=== PATIENT | male | born 1975 | race Caucasian/White ===

== ENCOUNTER 2025-02-09 16:13 | Inpatient (IN) ==
--- NOTE | 2025-02-09 16:22 | Emergency Department Note ---
Impression & Plan Cellulitis, Anemia, Hypokalemia ED Provider Note ED Provider Note NAME: KAMERON ZAPATA AGE:49 SEX: Male : 1975 ARRIVES VIA: POV INFORMANT: Patient ED PROVIDER(s): Elías Sung CHIEF COMPLAINT: cellulitis HPI: 49-year-old male presents emergency room with complaints of cellulitis. Patient's been on Keflex as outpatient. Patient States that he had fevers and chills, saw PCP who placed him on Keflex. She states been on it about a week and a half. States that he felt improved, in fact today he started having fevers and chills again, so he came in to be seen. He has had multiple bouts of cellulitis, he has significant lymphedema of the left lower extremity. PAST MEDICAL HISTORY:See Below PAST SURGICAL HISTORY:See Below FAMILY HISTORY:See Below SOCIAL HISTORY:See Below HOME MEDICATIONS:See Below ALLERGIES:See Below VITALS:See Below PHYSICAL EXAMINATION: GENERAL: alert, well appearing, well nourished, no distress, non-toxic NECK: supple, no nuchal rigidity, no adenopathy, non-tender LUNGS: Clear to auscultation. Normal chest wall mechanics, no w/r/r HEART: no murmurs, S1 normal and S2 normal ABDOMEN: abdomen soft, non-tender, normo-active bowel sounds, no masses, no rebound or guarding. BACK: Back is symmetrical on inspection and there is no deformity, no midline tenderness, no CVA tenderness. SKIN: no rashes, petechiae, orbruising UPPER EXTREMITIES: upper extremities are grossly normal. FROM, nml pulses b/l. LOWER EXTREMITIES: No pitting edema. FROM, nml pulses b/l. With exception of left lower extremity which has significant lymphedema. Redness from the knee below. Distal PMS appears intact. NEURO EXAM: Normal sensorium. Vital Signs: reviewed and remarkable Differential Diagnosis: Contact dermatitis, viral exanthem, urticaria, allergic reaction, Kowalski- Les syndrome, toxic epidermal necrolysis, erythema multiforme, cellulitis, scabies, HSV, varicella, zoster, eczema, staph scalded skin syndrome, fungal infection, as well as other pathologies. MEDICAL DECISION MAKIN-year-old male presents emergency room with complaints of left lower extremity cellulitis. Patient has failed outpatient treatment of cellulitis with Keflex. Patient states fever and chills, today so he came in to be seen. ER Treatment Provided: See below Diagnostics Interpreted By Me: -ECG: EKG shows sinus bradycardia at a rate of [address] changes, incomplete bundle branch block. -Cardiac Monitoring: An order was placed for continuous cardiac monitoring. The monitor shows a rate of 40 with sinus danny rhythm. -Laboratory studies: As stated above and show below. -Imaging studies: Venous study pending. Triage Nursing Note Reviewed Prior/Outside Records Reviewed Past Med/Surg History Problem List Hypokalemia (Acute) Anemia (Acute) Cellulitis (Acute) Social History Smoking Status: Never smoker Preferred Language: Kyrgyz Feels Safe at Home: Yes Allergies Allergies Allergy/AdvReac Type Severity Reaction Status Date / Time No Known Drug Allergies Allergy Unknown Verified 02/09/25 18:39 Results & Data (ED) Vital Signs Vital Signs - 24 hr 02/09/25 16:14 02/09/25 16:19 02/09/25 17:17 Temperature 36.7 C 36.5 C Temperature Source Oral Temporal Artery Scan Pulse Rate 44 L 41 L Pulse Rate [Apical] 43 L Pulse Rhythm [Apical] Regular Pulse Strength [Apical] Normal Respiratory Rate 16 19 Respiratory Effort / Characteristics Non-Labored Spontaneous Non-Labored Spontaneous Respiratory Depth Normal Normal Respiratory Pattern Regular Blood Pressure 146/81 H Blood Pressure [Right Arm] 132/68 Blood Pressure Mean 102 Blood Pressure Mean [Right Arm] 89 Blood Pressure Position [Right Arm] Lying Pulse Oximetry 100 100 Oxygen Delivery Method Room Air Room Air Sepsis Recent Fever Within 48 Hours No Sepsis New/Unexplained Change in Mental Status N/A Sepsis Action Taken by Nursing No Action Required 02/09/25 18:14 Temperature Temperature Source Pulse Rate Pulse Rate [Apical] 45 L Pulse Rhythm [Apical] Regular Pulse Strength [Apical] Normal Respiratory Rate 12 Respiratory Effort / Characteristics Non-Labored Spontaneous Respiratory Depth Normal Respiratory Pattern Regular Blood Pressure Blood Pressure [Right Arm] 124/76 Blood Pressure Mean Blood Pressure Mean [Right Arm] 92 Blood Pressure Position [Right Arm] Lying Pulse Oximetry 100 Oxygen Delivery Method Room Air Sepsis Recent Fever Within 48 Hours Sepsis New/Unexplained Change in Mental Status Sepsis Action Taken by Nursing Laboratory Data 10/18/25 16:43 02/09/25 16:43 Lab Results 02/09/25 Range/Units 16:43 WBC 5.97 (4.8-10.8) K/ul RBC 4.26 L (4.70-6.10) M/uL Hgb 10.4 L (14.0-18.0) g/dl Hct 32.8 L (42.0-52.0) % MCV 77.0 L (80.0-100.0) fL MCH 24.4 L (25.0-34.0) pg MCHC 31.7 L (32.0-36.0) g/dL RDW Std Deviation 44.4 (36.4-46.3) fL RDW Coeff of Rajiv 15.8 H (11.5-14.5) % Plt Count 185 (130-400) K/uL MPV 11.1 (9.4-12.4) fL Immature Gran % (Auto) 0.2 % Neut % (Auto) 49.6 % Lymph % (Auto) 38.9 % Andrews % (Auto) 7.7 % Eos % (Auto) 2.8 % Baso % (Auto) 0.8 % Neut # (Auto) 2.96 (1.40-6.50) K/uL Lymph # (Auto) 2.32 (1.20-3.40) K/uL Andrews # (Auto) 0.46 (0.11-0.59) K/uL Eos # (Auto) 0.17 (0.00-0.50) K/uL Baso # (Auto) 0.05 (0.00-0.20) K/uL Immature Gran # (Auto) 0.01 (0.01-0.20) K/uL ESR 33 H (0-15) mm/hr Sodium 139 (136-145) mmol/L Potassium 3.2 L (3.5-5.1) mmol/L Chloride 108 H (98-107) mmol/L Carbon Dioxide 25 (21-32) mmol/L Anion Gap 6 (3-11) BUN 9 (6-23) mg/dl Creatinine 0.89 (0.6-1.4) mg/dl Est Cr Clr Drug Dosing 134.6 ml/min eGFR 106.37 BUN/Creatinine Ratio 10.1 (10-20) Glucose 81 (70-99(Fasting)) mg/dl Lactate 0.8 (0.4-2.0) mmol/L Calcium 8.6 (8.6-10.3) mg/dl Iron 32 L (35-175) mcg/dl TIBC 413 (250-450) mcg/dl Transferrin 295 (200-360) mg/dl Transferrin % Sat 8 L (20-50) % Total Bilirubin 0.4 (0.2-1.0) mg/dl AST 16 (13-39) U/L ALT 10 (7-52) U/L Alkaline Phosphatase 136 H (34-104) U/L Troponin I High Sens 4.5 (0-20) pg/ml Total Protein 7.4 (6.0-8.3) gm/dl Albumin 3.4 (3.4-5.0) gm/dl Globulin 4.0 (2.5-4.0) gm/dl Albumin/Globulin Ratio 0.9 (0.9-2) Procalcitonin < 0.02 (0-0.5) ng/ml Administered Medications Vancomycin HCl 2,500 mg/ (Sodium Chloride) 550 mls @ 200 mls/hr IV NOW ONE Stop: 02/09/25 19:29 Last Admin: 02/09/25 18:15 Dose: 200 mls/hr Documented By: VIVIENNE Co-signed By: MARLON Discontinued Medications Hydromorphone HCl (Hydromorphone Inj 0.5 Mg/0.5 Ml Syr) 0.5 mg IV NOW STA Stop: 02/09/25 17:36 Last Admin: 02/09/25 18:09 Dose: 0.5 mg Documented By: VIVIENNE Co-signed By: MARLON Cefepime HCl (Maxipime 2000mg) 2,000 mg in 20 mls @ 5 mls/min IV NOW STA; Protocol Stop: 02/09/25 16:50 Last Admin: 02/09/25 17:26 Dose: 5 mls/min Documented By: BLAS Ketorolac Tromethamine (Ketorolac 30 Mg/Ml Vial) 30 mg IV NOW STA Stop: 02/09/25 16:48 Last Admin: 02/09/25 17:25 Dose: 30 mg Documented By: BLAS Potassium Chloride (Potassium Chloride Crtab 20 Meq Tabcr) 40 meq PO NOW STA Stop: 02/09/25 17:37 Last Admin: 02/09/25 18:08 Dose: 40 meq Documented By: VIVIENNE Co-signed By: MARLON Discharge Plan Visit Data Chief Complaint: Skin Problem Stated Complaint: CELLULITIS LEFT LEG, PAIN ED Provider: Thania Sung Discharge Problem: Cellulitis, Anemia, Hypokalemia Patient Disposition: Admitted As Inpatient Condition: Fair Forms Stand Alone Forms: [facility] Referrals Referrals: PCP,NO [Physician] - Discharge Problem: Cellulitis Qualifiers: Site of cellulitis: extremity Site of cellulitis of extremity: lower extremity Laterality: left Qualified Code(s): L03.116 - Cellulitis of left lower limb
[2025-02-09] MEDS ORDERED: VANCOMYCIN CONSULT ACTIVE PRN ×2 (16:45→18:10)
[2025-02-09 17:05] LABS: Hematocrit (blood only) 32.8 % (42.0-52.0); Hemoglobin 10.4 g/dl (14.0-18.0); Immature Granulocytes # (auto) 0.01 K/uL (0.01-0.20); Immature Granulocytes % (auto) 0.2 %; Mean Corpuscular Hemoglobin 24.4 pg (25.0-34.0); Mean Corpuscular Volume 77.0 fL (80.0-100.0); Platelet Count 185 K/uL (130-400); RDW Standard Deviation 44.4 fL (36.4-46.3); Red Blood Count 4.26 M/uL (4.70-6.10); White Blood Count 5.97 K/ul (4.8-10.8)
[2025-02-09] MEDS: KETOROLAC 30 MG/ML VIAL IV STA (17:25)
[2025-02-09 17:26] LABS: Alanine Aminotransferase 10 U/L (7-52); Albumin Globulin Ratio 0.9 (0.9-2); Albumin Level 3.4 gm/dl (3.4-5.0); Alkaline Phosphatase 136 U/L (34-104); Anion Gap 6 (3-11); Bilirubin,Total 0.4 mg/dl (0.2-1.0); Blood Urea Nitrogen 9 mg/dl (6-23); Calcium 8.6 mg/dl (8.6-10.3); Carbon Dioxide 25 mmol/L (21-32); Chloride 108 mmol/L (98-107); Creatinine Clr Calc Pharmacy 134.6 ml/min; Globulin 4.0 gm/dl (2.5-4.0); Glucose 81 mg/dl (70-99(Fasting)); Potassium 3.2 mmol/L (3.5-5.1); Sodium 139 mmol/L (136-145); Total Protein 7.4 gm/dl (6.0-8.3)
[2025-02-09] MEDS: CEFEPIME 2000MG 2,000 MG/20 ML SYR IV STA (17:26)
[2025-02-09] MEDS: POTASSIUM CHLORIDE CRTAB 20 MEQ TABCR PO STA (18:08)
[2025-02-09] MEDS: HYDROmorphone INJ 0.5 MG/0.5 ML SYR IV STA (18:09)
[2025-02-09] MEDS ORDERED: ACETAMINOPHEN 325 MG TAB PO PRN (18:10)
[2025-02-09] MEDS: VANCOMYCIN HCL 2,500 MG in SODIUM CHLORIDE 0.9% 500 ML IV ONE (18:15)
--- NOTE | 2025-02-09 18:19 | History & Physical Report ---
Date of Service February 09, 2025 Assessment & Plan (1) Cellulitis: Plan: As above in the History of Present Illness. (2) Hypokalemia: Plan: As above in the History of Present Illness. (3) Anemia: Plan: As above in the History of Present Illness. History of Present Illness Chief Complaint: "My left leg is infected; it started on the inside of my left upper thigh last Tuesday (01/30/2025), and I had fevers and chills on that same day Tuesday (01/30/2025), so I went to see my PCP Mr. Zaki Faria PA-C (JANNETTE Landers), and he prescribed keflex 500mg by mouth 4 times a day for 7 days. I told him before he prescribed it that I have taken keflex before to treat cellulitis of my left leg in the past and that it doesn't work, but he prescribed keflex 500mg by mouth 4 times a day for 7 days anyway, so I followed his advice, and I took all 28 tablets. I finished taking keflex on Tuesday (02/08/2025), and the keflex did not work. I didn't feel like calling my PCP CHOLO Payne (JANNETTE Landers), so I came to [facility] ER today (02/09/2025) to get it checked out. I haven't had any more fevers or chills since that last Tuesday (01/30/2025), but instead, I am not having serious pain in my left inside dunlap. The pain is sharp, stabbing, and constant, and doesn't go away at night, so I can't sleep for several nights now. The pain is an 8 (out of 10 point intensity scale) and I haven't taken medicine to take the pain away, as I'm worried that the infection is bad and may need to be drained again. There are no open wounds or ulcers on my left inside dunlap, and I don't see any pus or blood leaking out of my left inside dunlap, but still, it hurts so much, doc, I couldn't drive my car, so I had to get a friend drive me from my home to [facility] ER; we arrived this afternoon (02/09/2025, 4:00pm)." Primary Care Provider: Zaki Faria PA-C 49 years old male with PMH of FULL CODE @ home alone, obesity with BMI 38.7 (height 177.8 cm; weight 122.4 kg), s/p duodenal switch surgery (e.g., combination of gastric sleeve and bilio-pancreatic diversion (BPD))(2018, [facility], [place], [place]) with patient losing significant weight (e.g., pre-surgical weight 700 pounds in 2018; post-surgical weight now, 275 pounds on 02/09/2025), incipient lymphedema of right dynz-to-iniu over the past 1 year, chronic lymphedema of left jgbl-wn-okuy for the past 13 years, complicated by almost annual incidents of left mtkq-fv-zota cellulitis with abscess formation requiring surgical drainage x 1 (2008, [facility] [place], [place]), treated supportively thereafter with LLE compression bandage wraps, who reports: "My left leg is infected; it started on the inside of my left upper thigh last Tuesday (01/30/2025), and I had fevers and chills on that same day Tuesday (01/30/2025), so I went to see my PCP Mr. Zaki Faria PA-C (JANNETTE Landers), and he prescribed keflex 500mg by mouth 4 times a day for 7 days. I told him before he prescribed it that I have taken keflex before to treat cellulitis of my left leg in the past and that it doesn't work, but he prescribed keflex 500mg by mouth 4 times a day for 7 days anyway, so I followed his advice, and I took all 28 tablets. I finished taking keflex on Tuesday (02/08/2025), and the keflex did not work. I didn't feel like calling my PCP CHOLO Payne (JANNETTE Landers), so I came to [facility] ER today (02/09/2025) to get it checked out. I haven't had any more fevers or chills since that last Tuesday (01/30/2025), but instead, I am not having serious pain in my left inside dunlap. The pain is sharp, stabbing, and constant, and doesn't go away at night, so I can't sleep for several nights now. The pain is an 8 (out of 10 point intensity scale) and I haven't taken medicine to take the pain away, as I'm worried that the infection is bad and may need to be drained again. There are no open wounds or ulcers on my left inside dunlap, and I don't see any pus or blood leaking out of my left inside dunlap, but still, it hurts so much, doc, I couldn't drive my car, so I had to get a friend drive me from my home to [facility] ER; we arrived this afternoon (02/09/2025, 4:00pm)." Patient denies antecedent/coincident diaphoresis, cough, wheeze, sore throat, hemoptysis, shortness of breath, dyspnea on exertion, chest pains, palpitations, pleurisy, nausea, vomiting, diarrhea, abdominal pain, pelvic pain, hematemesis, hematochezia, melena, hematuria, dysuria, frequency, urgency, flank pain, headaches, dizziness, lightheadedness, visual changes, hearing changes, weakness, falls, syncope, trauma, travel history, sick contacts, or food/drug i ngestions novel or new. All other review of systems are reported as negative by the patient on admission date 02/09/2025. In [facility] ER bed #A9A, patient was afebrile at 36.7 degrees Celsius, HR 43, RR 16, O2 sat 100% on room air, and BP 132/68 (02/09/2025, 4:14pm). Exam was noted for bright carnelian red erythema (most pronounced on left medial aspect of left lower dunlap, compared to left lateral aspect of left knee/left upper-lower dunlap) with induration, warmth, and tenderness @ left medial aspect of left lower dunlap, non-circumferential, sharply demarcated from non-indurated skin of left lower dunlap. No fluctuance, crepitus, discharge (sanguineous, serous, suppurative), ulceration, malodor, lymphangitic streaking, or desquamation. Of note, despite patient's underlying, chronic lymphedema of left fwpa-bk-jevr for the past 13 years, erythema spares the left foot completely. Labs in [facility] ER bed #A9A included: WBC 5.97, N50 L40 M8 E3 B1, Hb 10.4, MCV 77.0, MCHC 31.7, platelet 185 (02/09/2025, 4:43pm). ESR (02/09/2025, 4:43pm). CRP (02/09/2025, 4:43pm). Lactic acid #1 (02/09/2025, 4:43pm). Lactic acid #2 (02/09/2025, 8:43pm). Procalcitonin #1 ___ (02/09/2025, 4:43pm). Blood culture #1 (02/09/2025, 4:43pm): Blood culture #2 (02/09/2025, 5:25pm): MRSA nares screen testing (02/09/2025, 7:47pm): Na 139, K 3.2, CO2 25, anion gap 6, BUN 9, creatinine 0.89, glucose 81, Ca 8.6, AST 16, ALT 10, ALK PHOS 136, total bili 0.4 (02/09/2025, 4:43pm). Troponin-I #1 4.5 pg/mL (02/09/2025, 4:43pm). Additional testing in [facility] ER bed #A9A included: LLE venous doppler (02/09/2025, 4:50pm): (rule out acute LLE DVT). Patient was subsequently admitted to the inpatient hospitalist service @ [facility] on 02/09/2025 with the following diagnoses: 1. Vcrei-js-pefhbkq left lower medial dunlap erysipelas, non-suppurative, non- ulcerative, non-bullous, R/O hematogenous dissemination. 2. Chronic lymphedema of the left nqnw-zf-cnvr over the past 13 years; incipient lymphedema of right vush-zn-twjh over the past 1 year. 3. Acute hypokalemia with admission K 3.2 mmol/L (02/09/2025, 4:43pm). 4. Microcytic, hypochromic anemia with admission Hb 10.4 g/dL, MCV 77.0, MCHC 31.7 (02/09/2025, 4:43pm). To address #1, patient was started on vancomycin 2.5g IV x 1 dose (02/09/2025, 4:47pm), cefepime 2g IV x 1 dose (02/09/2025, 5:26pm), toradol 30mg IV x 1 dose (02/09/2025, 5:25pm), and dilaudid 0.5mg IV x 1 dose (02/09/2025, 5:35pm) in [facility] ER bed #A9A. Patient will continue with vancomycin dosing as per Hospital Pharmacy Service (day #1/7 on 02/10/2025 am), cefepime 2g IV q8 (day #1/7 on 02/10/2025, 1:26am), tylenol 650mg PO q6 prn pain 1-3, headache, temp > 100.4 degrees Fahrenheit, and dilaudid 2mg IV q3 prn pain 4-10 in [facility] Med-Surg floor. I will check vitals, LLE exam, WBC w/diff, ESR, CRP, lactic acid, procalcitonin, blood culture #1 (02/09/2025, 4:43pm), and blood culture #2 (02/09/2025, 5:25pm) in the 02/10/2025 am. Of note, etiology of sjrec-ac-mwcaqnx left lower medial dunlap erysipelas is most likely to involve Streptococcus pyogenes, based on the vibrant red hue and sharp demarcation line erythematous/indurated tissue from uninvolved tissue, and the elaboration of erythrogenic toxin, which is unique to Streptococcus pyogenes. Staphylococcus species can also cause erysipelas, albeit much less frequently (cf., 20% of cases of erysipelas are caused by Staphylococcus species). To this end, I have ordered MRSA nares screen testing (02/09/2025, 7:47pm). To address #2, patient's lower extremities were both wrapped in LISSETTE elastic bandages, not only to treat chronic lymphedema by reducing swelling, but also to mitigate acute lymphedema-associated inflammation that exacerbates acute cellulitis, particularly in (morbidly) obese individuals. In addition, patient was ordered to maintain complete bedrest as well as to elevate both lower extremities above the level of the heart while under complete bedrest; this triad of supportive measures involving (1) LISSETTE wrap, (2) complete bedrest, and (3) leg elevation complement empiric antibiotic therapy outlined in bullet #1 above, by drawing excess inflammatory fluid (e.g., edema) away from the affected/infected left medial dunlap. To address #3, patient was started on KCl 40meq PO x 1 dose (02/09/2025, 5:36pm) in [facility] ER bed #A9A. I will check repeat K level in the 02/10/2025 am. To address #4, patient awaits iron studies (e.g., Fe, TIBC, ferritin) and repeat Hb level testing in the 02/10/2025 am. I will reserve packed RBC transfusion for Hb level less than 7 g/dL. Allergies Allergy/AdvReac Type Severity Reaction Status Date / Time No Known Drug Allergies Allergy Unknown Verified 02/09/25 18:39 Past Med/Surg History Problem List Hypokalemia (Acute) Anemia (Acute) Cellulitis (Acute) Family History (Updated 02/09/25 @ 19:39 by James Liu MD, PhD) Father No problems noted. Mother , @ 59 years of age from COVID-associated pneumonia. No problems noted. 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 Feels Safe at Home: Yes Assistive Devices: None Review of Systems Constitutional: As above in the History of Present Illness. Physical Exam Constitutional: General: Comfortable, cooperative, coherent. Wide awake and alert. Not confused, lethargic, or obtunded. Patient speaks in complete, fluent, and articulate sentences without pause, interruption, cough, or wheeze. HEENT: NC/AT. EOMI. PERRL. No nystagmus, gaze paresis, anisocoria, miosis, mydriasis, chemosis, hyphema, scleral injection, conjunctivitis, or pterygium. No otorrhea. No rhinorrhea. Neck: Supple, no stridor, bruit, or goiter. Jugular venous pressure 5cm above the sternal angle of Dc, which is typically 5 cm above the right atrium. Lymph: No anterior/posterior cervical lymphadenopathy, supraclavicular/infraclavicular lymphadenopathy, axilla/epitrochlear/inguinal lymphadenopathy. Chest: Symmetric rise and fall with respirations. Non-tender to palpation. Heart: RRR, S1 and S2. No S3 or S4 summation gallop. No tripartite friction rub. No murmur. Lungs: Clear to auscultation and percussion. No audible expiratory wheeze, egophony, pectoriloquy, increase in tactile fremitus, or flatness/dullness to percussion at the bases. Abd: Soft, non-tender, non-distended. Bowel sounds auscultated in all 4 quadrants. No rebound, guarding, Morelos's sign, or organomegaly. Ext: No clubbing, cyanosis. 1+ non-pitting left lower leg edema, most pronounced at the left posterior leg, just above the ankle, overlying the left Achilles tendon. 2+ pedal pulses bilaterally. Skin: No decubitus ulcer or enanthem. Bright carnelian red erythema (most pronounced on left medial aspect of left lower dunlap, compared to left lateral aspect of left knee/left upper-lower dunlap) with induration, warmth, and tenderness @ left medial aspect of left lower dunlap, non-circumferential, sharply demarcated from non-indurated skin of left lower dunlap. No fluctuance, crepitus, discharge (sanguineous, serous, suppurative), ulceration, malodor, lymphangitic streaking, or desquamation. Of note, despite patient's underlying, chronic lymphedema of left riem-um-bhrw for the past 13 years, erythema spares the left foot completely. Neuro: No tremors, tics, or myoclonus. DTR+. 5/5 motor strength in all 4 extremities, both proximally and distally. Urology: No pulido catheter. No urethral discharge. Results & Data Results & Data Vital Signs (Past 12 Hours) Vital Signs Temp Pulse Pulse Resp BP BP Pulse Ox 02/09/25 17:17 41 L 02/09/25 16:19 36.5 C 44 L 19 146/81 H 100 02/09/25 16:14 36.7 C 43 L 16 132/68 100 O2 Del Method 02/09/25 17:17 02/09/25 16:19 Room Air 02/09/25 16:14 Room Air Laboratory Results As above in the History of Present Illness. Diagnostic Findings LLE venous doppler (02/09/2025, 4:50pm): (evaluate/rule out acute LLE DVT). Code Status & VTE Plan VTE Prophylaxis Plan VTE Prophylaxis will be ordered: Yes PG Care Time/CCT Total # of Minutes Spent Total Time Spent with Patient: Total time spent is greater than 50% in coordination of care (as documented) at patient's floor/unit and/or counseling patient: Coding Level of Care Code 51167 INT INP/OBS CARE 2/55MIN Diagnoses Cellulitis L03.116 Laterality: left Site of cellulitis: extremity Site of cellulitis of extremity: lower extremity Hypokalemia E87.6 Anemia D64.9 (1) Cellulitis Laterality: left Site of cellulitis: extremity Site of cellulitis of extremity: lower extremity Qualified Code(s): L03.116 - Cellulitis of left lower limb
[2025-02-09 18:47] LABS: Iron 32 mcg/dl (35-175); Total Iron Binding Cap Calc 413 mcg/dl (250-450); Transferrin 295 mg/dl (200-360); Transferrin (FE) Percent Satur 8 % (20-50)
[2025-02-09 19:08] LABS: Ferritin 10.2 ng/ml (8-388)
--- NOTE | 2025-02-09 19:19 | Ultrasound Report ---
Left lower extremity venous Doppler ultrasound Technique: Grayscale and color Doppler ultrasound images of the left lower extremities were obtained. No comparison Findings: Venous pressures are fully compressible with normal color flow and augmentation Impression No DVT Electronically signed by Den Perez 02-09-2025 7:19 PM
[2025-02-09] MEDS: HYDROmorphone INJ 2 MG/ML SYR/VIAL IV PRN (21:08)
[2025-02-09] MEDS: HEPARIN SOD 5,000 UNIT/0.5 ML VIAL SQ SCH (21:08)
[2025-02-10] MEDS: CEFEPIME 2000MG 2,000 MG/20 ML SYR IV SCH (00:10)
[2025-02-10] MEDS ORDERED: CEFEPIME 2000MG 2,000 MG/20 ML SYR IV SCH (01:00)
[2025-02-10] MEDS ORDERED: CEFEPIME 2 GM VIAL IV SCH (01:26)
[2025-02-10] MEDS: VANCOMYCIN HCL 1,750 MG in SODIUM CHLORIDE 0.9% 500 ML IV SCH (05:04)
[2025-02-10 07:24] LABS: Anion Gap 3 (3-11); Blood Urea Nitrogen 12 mg/dl (6-23); Calcium 8.2 mg/dl (8.6-10.3); Carbon Dioxide 25 mmol/L (21-32); Chloride 112 mmol/L (98-107); Creatinine Clr Calc Pharmacy 128.7 ml/min; Glucose 70 mg/dl (70-99(Fasting)); Potassium 3.5 mmol/L (3.5-5.1); Sodium 140 mmol/L (136-145)
[2025-02-10 09:31] LABS: Hematocrit (blood only) 32.1 % (42.0-52.0); Hemoglobin 9.7 g/dl (14.0-18.0); Mean Corpuscular Hemoglobin 23.8 pg (25.0-34.0); Mean Corpuscular Volume 78.7 fL (80.0-100.0); Platelet Count 206 K/uL (130-400); RDW Standard Deviation 45.1 fL (36.4-46.3); Red Blood Count 4.08 M/uL (4.70-6.10); White Blood Count 5.13 K/ul (4.8-10.8)
[2025-02-10] MEDS: HYDROmorphone INJ 2 MG/ML SYR/VIAL IV STA (11:23)
[2025-02-10] MEDS: HYDROmorphone INJ 2 MG/ML SYR/VIAL IV PRN (14:42)
--- NOTE | 2025-02-10 14:50 | Pharmacy Report ---
Pharmacy PK ABX Note - Date of Service February 10, 2025 - Assessment and Plan Assessment 49 year old M receiving vancomycin and cefepime for treatment of skin and soft tissue infection. Pertinent microbiologic data includes: Positive MRSA Nasal Swab, 02/09 blood cultures pending. * Afebrile * WBC stable ~5 * SCr stable at 0.99 today (CrCl >120 mL/min) - unknown baseline * Recently finished course of cephalexin on 02/08/25 for cellulitis on left upper thigh * Given patient high body weight/BMI, high risk for vancomycin accumulation - may need to monitor levels more closely to prevent supratherapeutic regimen Day #2 of antimicrobial therapy. Plan Vancomycin * Loading dose: 2500 mg IV x 1 (given 02/09 @1800) * Maintenance dose: 1750 mg IV every 12 hours * Regimen is predicted to achieve target AUC/GONSALO of 400-600 mg/L.hr * Trough level ordered for: 02/11/25 @0400 Pharmacy will continue to follow and will adjust dose/frequency as necessary. Thank you. Pharmacy has transitioned to AUC monitoring for vancomycin. AUC/GONSALO is the preferred PK/PD target and is associated with decreased risk of nephrotoxicity compared to traditional trough targets.
--- NOTE | 2025-02-10 17:09 | Hospitalist Progress Note ---
Date of Service February 10, 2025 Assessment & Plan (1) Erysipelas of left lower extremity: Plan: To address #1, patient was started on vancomycin 2.5g IV x 1 dose (02/09/2025, 4:47pm), cefepime 2g IV x 1 dose (02/09/2025, 5:26pm), toradol 30mg IV x 1 dose (02/09/2025, 5:25pm), and dilaudid 0.5mg IV x 1 dose (02/09/2025, 5:35pm) in [facility] ER bed #A9A. Patient will continue with vancomycin 1.75g IV q12 (day #1/7 on 02/10/2025, 5:04am), cefepime 2g IV q8 (day #1/7 on 02/10/2025, 12:10am, 8:59am), tylenol 650mg PO q6 prn pain 1-3, headache, temp > 100.4 degrees Fahrenheit, and dilaudid 2mg IV q3 prn pain 4-10 in [facility] Med-Surg floor. I will check vitals, LLE exam, WBC w/diff, ESR, CRP, lactic acid, procalcitonin, blood culture #1 (02/09/2025, 4:43pm), and blood culture #2 (02/09/2025, 5:25pm) in the 02/11/2025 am. Of note, etiology of [id number] left lower medial dunlap erysipelas is most likely to involve Streptococcus pyogenes, based on the vibrant red hue and sharp demarcation line erythematous/indurated tissue from uninvolved tissue, and the elaboration of erythrogenic toxin, which is unique to Streptococcus pyogenes. Staphylococcus species can also cause erysipelas, albeit much less frequently (cf., 20% of cases of erysipelas are caused by Staphylococcus species). To this end, I have ordered MRSA nares screen testing (02/09/2025, 7:47pm). (2) Lymphedema due to chronic inflammation: Plan: To address #2, patient's lower extremities awaits arrival of tubi-health inspector in the 02/11/2025 am, not only to treat chronic lymphedema by reducing swelling, but also to mitigate acute lymphedema-associated inflammation that exacerbates acute cellulitis, particularly in (morbidly) obese individuals. In addition, patient was ordered to maintain complete bedrest as well as to elevate both lower extremities above the level of the heart while under complete bedrest; this triad of supportive measures involving (1) LISSETTE wrap, (2) complete bedrest, and (3) leg elevation complement empiric antibiotic therapy outlined in bullet #1 above, by drawing excess inflammatory fluid (e.g., edema) away from the affected/infected left medial dunlap. (3) Hypokalemia: Plan: To address #3, patient received KCl 40meq PO x 1 dose (02/09/2025, 5:36pm) in [facility] ER bed #A9A. Acute hypokalemia has improved, but persists, as shown below: cf., K 3.2 mmol/L (02/09/2025, 4:43pm). cf., K 3.5 mmol/L (02/10/2025, 6:42am). Hence, I have opted to supplement with KCl 40meq PO x 1 dose (02/10/2025, 5:17pm). I will check repeat K level in the 02/11/2025 am. (4) Anemia: Plan: To address #4, patient underwent iron studies (e.g., Fe, TIBC, ferritin) and repeat Hb level testing in the 02/10/2025 am, both of which were unremarkable in ascertaining the underlying etiology of patient's microcytic, hypochromic anemia. cf., normal Fe 32 ug/dL, normal TIBC 413 ug/dL, normal ferritin 10.2 ng/mL (02/09/2025, 4:43pm). cf., Hb 10.4, MCV 77.0, MCHC 31.7 (02/09/2025, 4:43pm). cf., Hb 9.7, MCV 78.7, MCHC 30.2 (02/10/2025, 6:42am). Subsequently, I will check repeat Hb level in the 02/11/2025 am, and I will reserve packed RBC transfusion for Hb level less than 7 g/dL. Admission and Anticipated Discharge Date Admission Date: February 09, 2025 Subjective "I feel better today (02/10/2025). The swelling and hardness in my left inside dunlap is going down today (02/10/2025) after I started the IV antibiotics yesterday (02/09/2025)." Review of Systems Constitutional: Positive for 6 out of 10 point intensity pain scale pain in left medial dunlap on 02/10/2025 after receiving dilaudid 2mg IV q3 prn pain rated 4 to 10. Negative for antecedent/coincident fevers, chills, diaphoresis, cough, wheeze, sore throat, hemoptysis, chest pains, palpitations, pleurisy, nausea, vomiting, diarrhea, abdominal pain, pelvic pain, hematemesis, hematochezia, melena, hematuria, dysuria, frequency, urgency, headaches, dizziness, lightheadedness, visual changes, hearing changes, weakness, falls, syncope, trauma, travel history, sick contacts, or food/drug ingestions novel or new. All other review of systems are reported as negative by the patient on 02/10/2025. Physical Exam Constitutional: General: Comfortable, cooperative, coherent. Wide awake and alert. Not confused, lethargic, or obtunded. Patient speaks in complete, fluent, and articulate sentences without pause, interruption, cough, or wheeze. HEENT: NC/AT. EOMI. PERRL. No nystagmus, gaze paresis, anisocoria, miosis, mydriasis, chemosis, hyphema, scleral injection, conjunctivitis, or pterygium. No otorrhea. No rhinorrhea. Neck: Supple, no stridor, bruit, or goiter. Jugular venous pressure 5cm above the sternal angle of Dc, which is typically 5 cm above the right atrium. Lymph: No anterior/posterior cervical lymphadenopathy, supraclavicular/infraclavicular lymphadenopathy, axilla/epitrochlear/inguinal lymphadenopathy. Chest: Symmetric rise and fall with respirations. Non-tender to palpation. Heart: RRR, S1 and S2. No S3 or S4 summation gallop. No tripartite friction rub. No murmur. Lungs: Clear to auscultation and percussion. No audible expiratory wheeze, egophony, pectoriloquy, increase in tactile fremitus, or flatness/dullness to percussion at the bases. Abd: Soft, non-tender, non-distended. Bowel sounds auscultated in all 4 quadrants. No rebound, guarding, Morelos's sign, or organomegaly. Ext: No clubbing, cyanosis. 1+ non-pitting left lower leg edema, most pronounced at the left posterior leg, just above the ankle, overlying the left Achilles tendon. 2+ pedal pulses bilaterally. Skin: No decubitus ulcer or enanthem. Bright carnelian red erythema (most pronounced on left medial aspect of left lower dunlap, compared to left lateral aspect of left knee/left upper-lower dunlap) with induration, warmth, and t enderness @ left medial aspect of left lower dunlap, non-circumferential, sharply demarcated from non-indurated skin of left lower dunlap. No fluctuance, crepitus, discharge (sanguineous, serous, suppurative), ulceration, malodor, lymphangitic streaking, or desquamation. Of note, despite patient's underlying, chronic lymphedema of left uldg-hc-epnl for the past 13 years, erythema spares the left foot completely. Neuro: No tremors, tics, or myoclonus. DTR+. 5/5 motor strength in all 4 extremities, both proximally and distally. Urology: No pulido catheter. No urethral discharge. Results & Data Results & Data Vital Signs (Past 12 Hours) Vital Signs Temp Pulse Resp BP Pulse Ox O2 Del Method 02/10/25 14:29 36.7 C 52 L 18 105/60 97 Room Air 02/10/25 12:37 111/63 02/10/25 11:23 96/55 L 02/10/25 07:28 36.5 C 63 16 94/53 L 98 Room Air Laboratory Results WBC 5.97, N50 L40 M8 E3 B1, Hb 10.4, MCV 77.0, MCHC 31.7, platelet 185 (02/09/2025, 4:43pm). WBC 5.13, no differential, Hb 9.7, MCV 78.7, MCHC 30.2, platelet 206 (02/10/2025, 6:42am). Fe 32 ug/dL, TIBC 413 ug/dL, ferritin 10.2 ng/mL (02/09/2025, 4:43pm). ESR 33 mm/hr (02/09/2025, 4:43pm). ESR 19 mm/hr (02/10/2025, 6:42am). CRP < 0.50 mg/dL (02/09/2025, 4:43pm). CRP < 0.50 mg/dL (02/10/2025, 6:42am). Lactic acid #1 0.8 mmol/L (02/09/2025, 4:43pm). Lactic acid #2 1.2 mmol/L (02/09/2025, 7:39pm). Lactic acid #3 1.2 mmol/L (02/09/2025, 9:26pm). Lactic acid #4 0.8 mmol/L (02/10/2025, 6:42am). Procalcitonin #1 < 0.02 ng/mL (02/09/2025, 4:43pm). Procalcitonin #2 < 0.02 ng/mL (02/10/2025, 6:42am). Blood culture #1 (02/09/2025, 4:43pm): Blood culture #2 (02/09/2025, 5:25pm): MRSA nares screen testing (02/09/2025, 4:32pm): + Na 139, K 3.2, CO2 25, anion gap 6, BUN 9, creatinine 0.89, glucose 81, Ca 8.6, AST 16, ALT 10, ALK PHOS 136, total bili 0.4 (02/09/2025, 4:43pm). Na 140, K 3.5, CO2 25, anion gap 3, BUN 12, creatinine 0.99, glucose 70, Ca 8.2 (02/10/2025, 6:42am). Troponin-I #1 4.5 pg/mL (02/09/2025, 4:43pm). Diagnostic Findings LLE venous doppler (02/09/2025, 4:50pm): No DVT. PG Care Time/CCT Total # of Minutes Spent Total Time Spent with Patient: Total time spent is greater than 50% in coordination of care (as documented) at patient's floor/unit and/or counseling patient: Coding Level of Care Code 39799 SUB INP/OBS CARE MIN Diagnoses Erysipelas of left lower extremity A46 Lymphedema due to chronic inflammation I89.0 Hypokalemia E87.6 Anemia D64.9
[2025-02-10] MEDS: POTASSIUM CHLORIDE CRTAB 20 MEQ TABCR PO STA (17:46)
[2025-02-10 18:10] LABS: Magnesium 1.7 mg/dl (1.7-2.4)
[2025-02-10] MEDS: ONDANSETRON INJ 2 MG/ML 2 ML VIAL IV PRN (18:14)
--- NOTE | 2025-02-10 22:12 | Electrocardiogram Report ---
Test Reason : Blood Pressure : */* mmHG Vent. Rate : 41 BPM Atrial Rate : 41 BPM P-R Int : 204 ms QRS Dur : 102 ms QT Int : 476 ms P-R-T Axes : 59 0 7 degrees QTcB Int : 392 ms Marked sinus bradycardia Abnormal ECG No previous ECGs available Confirmed by Shahid Bryan [id number]) on 02/10/2025 10:12:20 PM Referred By: REFERRED SELF Confirmed By: Shahid Bryan
[2025-02-11 04:00] LABS: Hematocrit (blood only) 29.3 % (42.0-52.0); Hemoglobin 8.9 g/dl (14.0-18.0); Mean Corpuscular Hemoglobin 24.1 pg (25.0-34.0); Mean Corpuscular Volume 79.4 fL (80.0-100.0); Platelet Count 173 K/uL (130-400); RDW Standard Deviation 46.6 fL (36.4-46.3); Red Blood Count 3.69 M/uL (4.70-6.10); White Blood Count 4.80 K/ul (4.8-10.8)
[2025-02-11] MEDS: VANCOMYCIN LEVEL ONE (04:05)
[2025-02-11 04:13] LABS: Creatinine Clr Calc Pharmacy 109.8 ml/min
--- NOTE | 2025-02-11 08:47 | Pharmacy Report ---
Pharmacy PK ABX Note - Date of Service February 11, 2025 - Assessment and Plan Assessment 02/11: * Random vancomycin level this morning came back at ~22 mcg/ml - current dosing expected to produce AUC/GONSALO >600 therefore will scale back on dosing. Will decrease to 1000 mg iv q 12 hours 02/10 * 49 year old M receiving vancomycin and cefepime for treatment of skin and soft tissue infection. Pertinent microbiologic data includes: Positive MRSA Nasal Swab, 02/09 blood cultures pending. * Afebrile * WBC stable ~5 * SCr stable at 0.99 today (CrCl >120 mL/min) - unknown baseline * Recently finished course of cephalexin on 02/08/25 for cellulitis on left upper thigh * Given patient high body weight/BMI, high risk for vancomycin accumulation - may need to monitor levels more closely to prevent supratherapeutic regimen Plan Vancomycin * Decrease 1000 mg iv q 12 hours * Will order another level in next 2 days if continued Pharmacy will continue to follow and will adjust dose/frequency as necessary. Thank you. Pharmacy has transitioned to AUC monitoring for vancomycin. AUC/GONSALO is the preferred PK/PD target and is associated with decreased risk of nephrotoxicity compared to traditional trough targets.
[2025-02-11] MEDS: VANCOMYCIN HCL / NSS 1,000 MG/270 ML BAG IV SCH (17:39)
[2025-02-11] MEDS: PROCHLORPERAZINE 10 MG in SYRINGE 8 ML IV ONE (18:33)
--- NOTE | 2025-02-11 21:12 | Hospitalist Progress Note ---
Date of Service February 11, 2025 Assessment & Plan (1) Erysipelas of left lower extremity: Plan: To address #1, patient was started on vancomycin 2.5g IV x 1 dose (02/09/2025, 4:47pm), cefepime 2g IV x 1 dose (02/09/2025, 5:26pm), toradol 30mg IV x 1 dose (02/09/2025, 5:25pm), and dilaudid 0.5mg IV x 1 dose (02/09/2025, 5:35pm) in [facility] ER bed #A9A. Patient received vancomycin 1.75g IV q12 x 3 doses (day #17 on 02/10/2025, 5:04am, 5:42pm; 02/11/2025, 5:17am), cefepime 2g IV q8 x 6 doses (day #1/7 on 02/10/2025, 12:10am, 8:59am, 5:38pm; 02/11/2025, 12:37am, 9:29am, 5:35pm), tylenol 650mg PO q6 prn pain 1-3, headache, temp > 100.4 degrees Fahrenheit, and dilaudid 2mg IV q3 prn pain 4-10 in [facility] Med-Surg floor. I will check vitals, LLE exam, WBC w/diff, ESR, CRP, lactic acid, procalcitonin, blood culture #1 (02/09/2025, 4:43pm), and blood culture #2 (02/09/2025, 5:25pm) in the 02/11/2025 am. Of note, etiology of ukbll-[id number] left lower medial dunlap erysipelas is most likely to involve Streptococcus pyogenes, based on the vibrant red hue and sharp demarcation line erythematous/indurated tissue from uninvolved tissue, and the elaboration of erythrogenic toxin, which is unique to Streptococcus pyogenes. Staphylococcus species can also cause erysipelas, albeit much less frequently (cf., 20% of cases of erysipelas are caused by Staphylococcus species). To this end, I ordered MRSA nares screen testing (02/09/2025, 4:32pm)+. Subsequently, patient continues with vancomycin 1g IV q12 (02/11/2025, 5:39pm). (2) Lymphedema due to chronic inflammation: Plan: To address #2, patient's lower extremities awaits arrival of tubi-esthetics instructor in the 02/11/2025 am, not only to treat chronic lymphedema by reducing swelling, but also to mitigate acute lymphedema-associated inflammation that exacerbates acute cellulitis, particularly in (morbidly) obese individuals. In addition, patient was ordered to maintain complete bedrest as well as to elevate both lower extremities above the level of the heart while under complete bedrest; this triad of supportive measures involving (1) LISSETTE wrap, (2) complete bedrest, and (3) leg elevation complement empiric antibiotic therapy outlined in bullet #1 above, by drawing excess inflammatory fluid (e.g., edema) away from the affected/infected left medial dunlap. (3) Hypokalemia: Plan: To address #3, patient received KCl 40meq PO x 1 dose (02/09/2025, 5:36pm) in [facility] ER bed #A9A. Acute hypokalemia has improved, but persists, as shown below: cf., K 3.2 mmol/L (02/09/2025, 4:43pm). cf., K 3.5 mmol/L (02/10/2025, 6:42am). Subsequently, patient received KCl 40meq PO x 1 dose (02/10/2025, 5:46pm). Await repeat K level (02/11/2025, 9:11pm). (4) Anemia: Plan: To address #4, patient underwent iron studies (e.g., Fe, TIBC, ferritin) and repeat Hb level testing in the 02/10/2025 am, both of which were unremarkable in ascertaining the underlying etiology of patient's microcytic, hypochromic anemia. cf., normal Fe 32 ug/dL, normal TIBC 413 ug/dL, normal ferritin 10.2 ng/mL ( 02/09/2025, 4:43pm). cf., Hb 10.4, MCV 77.0, MCHC 31.7 (02/09/2025, 4:43pm). cf., Hb 9.7, MCV 78.7, MCHC 30.2 (02/10/2025, 6:42am). Subsequently, I will check repeat Hb level in the 02/12/2025 am, and I will reserve packed RBC transfusion for Hb level less than 7 g/dL. Admission and Anticipated Discharge Date Admission Date: February 09, 2025 Subjective "I feel better today (02/10/2025). The swelling and hardness in my left inside dunlap is going down today (02/10/2025) after I started the IV antibiotics yesterday (02/09/2025)." Review of Systems Constitutional: Positive for 0 out of 10 point intensity pain scale pain in left medial dunlap on 02/11/2025 after receiving dilaudid 2mg IV q2 prn pain rated 4 to 10. Positive for 6 out of 10 point intensity pain scale pain in left medial dunlap on 02/10/2025 after receiving dilaudid 2mg IV q3 prn pain rated 4 to 10. Negative for antecedent/coincident fevers, chills, diaphoresis, cough, wheeze, sore throat, hemoptysis, chest pains, palpitations, pleurisy, nausea, vomiting, diarrhea, abdominal pain, pelvic pain, hematemesis, hematochezia, melena, hematuria, dysuria, frequency, urgency, headaches, dizziness, lightheadedness, visual changes, hearing changes, weakness, falls, syncope, trauma, travel history, sick contacts, or food/drug ingestions novel or new. All other review of systems are reported as negative by the patient on 02/11/2025. Physical Exam Constitutional: General: Comfortable, cooperative, coherent. Wide awake and alert. Not confused, lethargic, or obtunded. Patient speaks in complete, fluent, and articulate sentences without pause, interruption, cough, or wheeze. HEENT: NC/AT. EOMI. PERRL. No nystagmus, gaze paresis, anisocoria, miosis, mydriasis, chemosis, hyphema, scleral injection, conjunctivitis, or pterygium. No otorrhea. No rhinorrhea. Neck: Supple, no stridor, bruit, or goiter. Jugular venous pressure 5cm above the sternal angle of Dc, which is typically 5 cm above the right atrium. Lymph: No anterior/posterior cervical lymphadenopathy, supraclavicular/infraclavicular lymphadenopathy, axilla/epitrochlear/inguinal lymphadenopathy. Chest: Symmetric rise and fall with respirations. Non-tender to palpation. Heart: RRR, S1 and S2. No S3 or S4 summation gallop. No tripartite friction rub. No murmur. Lungs: Clear to auscultation and percussion. No audible expiratory wheeze, egophony, pectoriloquy, increase in tactile fremitus, or flatness/dullness to percussion at the bases. Abd: Soft, non-tender, non-distended. Bowel sounds auscultated in all 4 quadrants. No rebound, guarding, Morelos's sign, or organomegaly. Ext: No clubbing, cyanosis. 1+ non-pitting left lower leg edema, most pronounced at the left posterior leg, just above the ankle, overlying the left Achilles tendon. 2+ pedal pulses bilaterally. Skin: No decubitus ulcer or enanthem. Bright carnelian red erythema (most pronounced on left medial aspect of left lower dunlap, compared to left lateral aspect of left knee/left upper-lower dunlap) with induration, warmth, and tenderness @ left medial aspect of left lower dunlap, non-circumferential, sharply demarcated from non-indurated skin of left lower dunlap. No fluctuance, crepitus, discharge (sanguineous, serous, suppurative), ulceration, malodor, lymphangitic streaking, or desquamation. Of note, despite patient's underlying, chronic lymphedema of left iosl-nk-lidf for the past 13 years, erythema spares the left foot completely. Neuro: No tremors, tics, or myoclonus. DTR+. 5/5 motor strength in all 4 extremities, both proximally and distally. Urology: No pulido catheter. No urethral discharge. Results & Data Results & Data Vital Signs (Past 12 Hours) Vital Signs Temp Pulse Resp BP Pulse Ox O2 Del Method 02/11/25 15:55 36.5 C 51 L 19 118/67 98 Room Air Laboratory Results WBC 5.97, N50 L40 M8 E3 B1, Hb 10.4, MCV 77.0, MCHC 31.7, platelet 185 (02/09/2025, 4:43pm). WBC 5.13, no differential, Hb 9.7, MCV 78.7, MCHC 30.2, platelet 206 (02/10/2025, 6:42am). WBC 4.80, no differential, Hb 8.9, MCV 79.4, MCHC 30.4, platelet 173 (02/11/2025, 3:42am). Fe 32 ug/dL, TIBC 413 ug/dL, ferritin 10.2 ng/mL (02/09/2025, 4:43pm). ESR 33 mm/hr (02/09/2025, 4:43pm). ESR 19 mm/hr (02/10/2025, 6:42am). ESR 15 mm/hr (02/11/2025, 3:42am). CRP < 0.50 mg/dL (02/09/2025, 4:43pm). CRP < 0.50 mg/dL (02/10/2025, 6:42am). CRP < 0.50 mg/dL (02/11/2025, 3:42am). Lactic acid #1 0.8 mmol/L (02/09/2025, 4:43pm). Lactic acid #2 1.2 mmol/L (02/09/2025, 7:39pm). Lactic acid #3 1.2 mmol/L (02/09/2025, 9:26pm). Lactic acid #4 0.8 mmol/L (02/10/2025, 6:42am). Lactic acid #5 0.4 mmol/L (02/11/2025, 3:42am). Procalcitonin #1 < 0.02 ng/mL (02/09/2025, 4:43pm). Procalcitonin #2 < 0.02 ng/mL (02/10/2025, 6:42am). Procalcitonin #3 < 0.02 ng/mL (02/11/2025, 3:42am). Blood culture #1 (02/09/2025, 4:43pm): Blood culture #2 (02/09/2025, 5:25pm): MRSA nares screen testing (02/09/2025, 4:32pm): + Na 139, K 3.2, CO2 25, anion gap 6, BUN 9, creatinine 0.89, glucose 81, Ca 8.6, AST 16, ALT 10, ALK PHOS 136, total bili 0.4 (02/09/2025, 4:43pm). Na 140, K 3.5, CO2 25, anion gap 3, BUN 12, creatinine 0.99, glucose 70, Ca 8.2 (02/10/2025, 6:42am). Troponin-I #1 4.5 pg/mL (02/09/2025, 4:43pm). Diagnostic Findings LLE venous doppler (02/09/2025, 4:50pm): No DVT. PG Care Time/CCT Total # of Minutes Spent Total Time Spent with Patient: Total time spent is greater than 50% in coordination of care (as documented) at patient's floor/unit and/or counseling patient: Coding Level of Care Code 16002 SUB INP/OBS CARE 2/35MIN Diagnoses Erysipelas of left lower extremity A46 Lymphedema due to chronic inflammation I89.0 Hypokalemia E87.6 Anemia D64.9
[2025-02-12 07:18] LABS: Anion Gap 3 (3-11); Blood Urea Nitrogen 12 mg/dl (6-23); Calcium 8.4 mg/dl (8.6-10.3); Carbon Dioxide 26 mmol/L (21-32); Chloride 110 mmol/L (98-107); Creatinine Clr Calc Pharmacy 148.2 ml/min; Glucose 76 mg/dl (70-99(Fasting)); Potassium 4.3 mmol/L (3.5-5.1); Sodium 139 mmol/L (136-145)
--- NOTE | 2025-02-12 22:20 | Hospitalist Progress Note ---
Date of Service February 12, 2025 Assessment & Plan (1) Erysipelas of left lower extremity: Plan: To address #1, patient was started on vancomycin 2.5g IV x 1 dose (02/09/2025, 4:47pm), cefepime 2g IV x 1 dose (02/09/2025, 5:26pm), toradol 30mg IV x 1 dose (02/09/2025, 5:25pm), and dilaudid 0.5mg IV x 1 dose (02/09/2025, 5:35pm) in [facility] ER bed #A9A. Patient received vancomycin 1.75g IV q12 x 3 doses (day #17 on 02/10/2025, 5:04am, 5:42pm; 02/11/2025, 5:17am), cefepime 2g IV q8 x 6 doses (day #1/7 on 02/10/2025, 12:10am, 8:59am, 5:38pm; 02/11/2025, 12:37am, 9:29am, 5:35pm), tylenol 650mg PO q6 prn pain 1-3, headache, temp > 100.4 degrees Fahrenheit, and dilaudid 2mg IV q3 prn pain 4-10 in [facility] Med-Surg floor. I will check vitals, LLE exam, WBC w/diff, ESR, CRP, lactic acid, procalcitonin, blood culture #1 (02/09/2025, 4:43pm), and blood culture #2 (02/09/2025, 5:25pm) in the 02/11/2025 am. Of note, etiology of [id number] left lower medial dunlap erysipelas is most likely to involve Streptococcus pyogenes, based on the vibrant red hue and sharp demarcation line erythematous/indurated tissue from uninvolved tissue, and the elaboration of erythrogenic toxin, which is unique to Streptococcus pyogenes. Staphylococcus species can also cause erysipelas, albeit much less frequently (cf., 20% of cases of erysipelas are caused by Staphylococcus species). To this end, I ordered MRSA nares screen testing (02/09/2025, 4:32pm)+. Subsequently, patient continues with vancomycin 1g IV q12 (02/11/2025, 5:39pm). (2) Lymphedema due to chronic inflammation: Plan: To address #2, patient's lower extremities awaits arrival of tubi-mental health coordinator in the 02/11/2025 am, not only to treat chronic lymphedema by reducing swelling, but also to mitigate acute lymphedema-associated inflammation that exacerbates acute cellulitis, particularly in (morbidly) obese individuals. In addition, patient was ordered to maintain complete bedrest as well as to elevate both lower extremities above the level of the heart while under complete bedrest; this triad of supportive measures involving (1) LISSETTE wrap, (2) complete bedrest, and (3) leg elevation complement empiric antibiotic therapy outlined in bullet #1 above, by drawing excess inflammatory fluid (e.g., edema) away from the affected/infected left medial dunlap. (3) Hypokalemia: Plan: To address #3, patient received KCl 40meq PO x 1 dose (02/09/2025, 5:36pm) in [facility] ER bed #A9A. Acute hypokalemia has improved, but persists, as shown below: cf., K 3.2 mmol/L (02/09/2025, 4:43pm). cf., K 3.5 mmol/L (02/10/2025, 6:42am). Subsequently, patient received KCl 40meq PO x 1 dose (02/10/2025, 5:46pm). Await repeat K level (02/11/2025, 9:11pm). (4) Anemia: Plan: To address #4, patient underwent iron studies (e.g., Fe, TIBC, ferritin) and repeat Hb level testing in the 02/10/2025 am, both of which were unremarkable in ascertaining the underlying etiology of patient's microcytic, hypochromic anemia. cf., normal Fe 32 ug/dL, normal TIBC 413 ug/dL, normal ferritin 10.2 ng/mL ( 02/09/2025, 4:43pm). cf., Hb 10.4, MCV 77.0, MCHC 31.7 (02/09/2025, 4:43pm). cf., Hb 9.7, MCV 78.7, MCHC 30.2 (02/10/2025, 6:42am). Subsequently, I will check repeat Hb level in the 02/12/2025 am, and I will reserve packed RBC transfusion for Hb level less than 7 g/dL. Admission and Anticipated Discharge Date Admission Date: February 09, 2025 Subjective "I feel better today (02/12/2025). The swelling and hardness in my left inside dunlap is going down today (02/12/2025) after I started the IV antibiotics (02/09/2025)." Review of Systems Constitutional: Positive for 0 out of 10 point intensity pain scale pain in left medial dunlap on 02/12/2025 after receiving dilaudid 2mg IV q2 prn pain rated 4 to 10 Positive for 0 out of 10 point intensity pain scale pain in left medial dunlap on 02/11/2025 after receiving dilaudid 2mg IV q2 prn pain rated 4 to 10. Positive for 6 out of 10 point intensity pain scale pain in left medial dunlap on 02/10/2025 after receiving dilaudid 2mg IV q3 prn pain rated 4 to 10. Negative for antecedent/coincident fevers, chills, diaphoresis, cough, wheeze, sore throat, hemoptysis, chest pains, palpitations, pleurisy, nausea, vomiting, diarrhea, abdominal pain, pelvic pain, hematemesis, hematochezia, melena, hematuria, dysuria, frequency, urgency, headaches, dizziness, lightheadedness, visual changes, hearing changes, weakness, falls, syncope, trauma, travel history, sick contacts, or food/drug ingestions novel or new. All other review of systems are reported as negative by the patient on 02/12/2025. Physical Exam Constitutional: General: Comfortable, cooperative, coherent. Wide awake and alert. Not confused, lethargic, or obtunded. Patient speaks in complete, fluent, and articulate sentences without pause, interruption, cough, or wheeze. HEENT: NC/AT. EOMI. PERRL. No nystagmus, gaze paresis, anisocoria, miosis, mydriasis, chemosis, hyphema, scleral injection, conjunctivitis, or pterygium. No otorrhea. No rhinorrhea. Neck: Supple, no stridor, bruit, or goiter. Jugular venous pressure 5cm above the sternal angle of Dc, which is typically 5 cm above the right atrium. Lymph: No anterior/posterior cervical lymphadenopathy, supraclavicular/infraclavicular lymphadenopathy, axilla/epitrochlear/inguinal lymphadenopathy. Chest: Symmetric rise and fall with respirations. Non-tender to palpation. Heart: RRR, S1 and S2. No S3 or S4 summation gallop. No tripartite friction rub. No murmur. Lungs: Clear to auscultation and percussion. No audible expiratory wheeze, egophony, pectoriloquy, increase in tactile fremitus, or flatness/dullness to percussion at the bases. Abd: Soft, non-tender, non-distended. Bowel sounds auscultated in all 4 quadrants. No rebound, guarding, Morelos's sign, or organomegaly. Ext: No clubbing, cyanosis. 1+ non-pitting left lower leg edema, most pronounced at the left posterior leg, just above the ankle, overlying the left Achilles tendon. 2+ pedal pulses bilaterally. Skin: No decubitus ulcer or enanthem. Bright carnelian red erythema (most pronounced on left medial aspect of left lower dunlap, compared to left lateral aspect of left knee/left upper-lower dunlap) with induration, warmth, and tenderness @ left medial aspect of left lower dunlap, non-circumferential, sharply demarcated from non-indurated skin of left lower dunlap. No fluctuance, crepitus, discharge (sanguineous, serous, suppurative), ulceration, malodor, lymphangitic streaking, or desquamation. Of note, despite patient's underlying, chronic lymphedema of left [id number] for the past 13 years, erythema spares the left foot completely. Neuro: No tremors, tics, or myoclonus. DTR+. 5/5 motor strength in all 4 extremities, both proximally and distally. Urology: No pulido catheter. No urethral discharge. Results & Data Results & Data Vital Signs (Past 12 Hours) Vital Signs Temp Pulse Resp BP Pulse Ox O2 Del Method 02/12/25 14:50 36.6 C 63 16 110/68 98 Room Air Laboratory Results WBC 5.97, N50 L40 M8 E3 B1, Hb 10.4, MCV 77.0, MCHC 31.7, platelet 185 (02/09/2025, 4:43pm). WBC 5.13, no differential, Hb 9.7, MCV 78.7, MCHC 30.2, platelet 206 (02/10/2025, 6:42am). WBC 4.80, no differential, Hb 8.9, MCV 79.4, MCHC 30.4, platelet 173 (02/11/2025, 3:42am). Fe 32 ug/dL, TIBC 413 ug/dL, ferritin 10.2 ng/mL (02/09/2025, 4:43pm). ESR 33 mm/hr (02/09/2025, 4:43pm). ESR 19 mm/hr (02/10/2025, 6:42am). ESR 15 mm/hr (02/11/2025, 3:42am). ESR 18 mm/hr (02/12/2025, 6:38am). CRP < 0.50 mg/dL (02/09/2025, 4:43pm). CRP < 0.50 mg/dL (02/10/2025, 6:42am). CRP < 0.50 mg/dL (02/11/2025, 3:42am). CRP < 0.50 mg/dL (02/12/2025, 6:38am). Lactic acid #1 0.8 mmol/L (02/09/2025, 4:43pm). Lactic acid #2 1.2 mmol/L (02/09/2025, 7:39pm). Lactic acid #3 1.2 mmol/L (02/09/2025, 9:26pm). Lactic acid #4 0.8 mmol/L (02/10/2025, 6:42am). Lactic acid #5 0.4 mmol/L (02/11/2025, 3:42am). Lactic acid #6 0.5 mmol/L (02/12/2025, 6:38am). Procalcitonin #1 < 0.02 ng/mL (02/09/2025, 4:43pm). Procalcitonin #2 < 0.02 ng/mL (02/10/2025, 6:42am). Procalcitonin #3 < 0.02 ng/mL (02/11/2025, 3:42am). Procalcitonin #4 0.04 ng/mL (02/12/2025, 6:38am). Blood culture #1 (02/09/2025, 4:43pm): Blood culture #2 (02/09/2025, 5:25pm): PG Care Time/CCT Total # of Minutes Spent Total Time Spent with Patient: Total time spent is greater than 50% in coordination of care (as documented) at patient's floor/unit and/or counseling patient: Coding Level of Care Code 87691 SUB INP/OBS CARE 2/35MIN Diagnoses Erysipelas of left lower extremity A46 Lymphedema due to chronic inflammation I89.0 Hypokalemia E87.6 Anemia D64.9
[2025-02-13] MEDS: VANCOMYCIN LEVEL ONE (06:31)
[2025-02-13 06:33] LABS: Creatinine Clr Calc Pharmacy 167.6 ml/min
--- NOTE | 2025-02-13 07:43 | Pharmacy Report ---
Pharmacy PK ABX Note - Date of Service February 13, 2025 - Assessment and Plan Assessment 02/13: * Afebrile, BCx no growth. SCr improved. * Random vancomycin level this morning = 15.1 mcg/ml - current dosing expected to produce AUC/GONSALO 400-600. * Also continues on Cefepime 2g IV Q8H, Dr. Liu would like to continue both antibiotics for dual coverage, likely strep pyogenes. 02/11: * Random vancomycin level this morning came back at ~22 mcg/ml - current dosing expected to produce AUC/GONSALO >600 therefore will scale back on dosing. Will decrease to 1000 mg iv q 12 hours 02/10 * 49 year old M receiving vancomycin and cefepime for treatment of skin and soft tissue infection. Pertinent microbiologic data includes: Positive MRSA Nasal Swab, 02/09 blood cultures pending. * Afebrile * WBC stable ~5 * SCr stable at 0.99 today (CrCl >120 mL/min) - unknown baseline * Recently finished course of cephalexin on 02/08/25 for cellulitis on left upper thigh * Given patient high body weight/BMI, high risk for vancomycin accumulation - may need to monitor levels more closely to prevent supratherapeutic regimen Plan Vancomycin * Continue 1000 mg IV q 12 hours * Will order another level in next 2 days if continued Cefepime 2g IV Q8H Pharmacy will continue to follow and will adjust dose/frequency as necessary. Thank you. Pharmacy has transitioned to AUC monitoring for vancomycin. AUC/GONSALO is the pr eferred PK/PD target and is associated with decreased risk of nephrotoxicity compared to traditional trough targets.
--- NOTE | 2025-02-13 19:09 | Hospitalist Progress Note ---
Date of Service February 13, 2025 Assessment & Plan (1) Erysipelas of left lower extremity: Plan: To address #1, patient was started on vancomycin 2.5g IV x 1 dose (02/09/2025, 4:47pm), cefepime 2g IV x 1 dose (02/09/2025, 5:26pm), toradol 30mg IV x 1 dose (02/09/2025, 5:25pm), and dilaudid 0.5mg IV x 1 dose (02/09/2025, 5:35pm) in [facility] ER bed #A9A. Patient received vancomycin 1.75g IV q12 x 3 doses (day #17 on 02/10/2025, 5:04am, 5:42pm; 02/11/2025, 5:17am), cefepime 2g IV q8 x 6 doses (day #1/7 on 02/10/2025, 12:10am, 8:59am, 5:38pm; 02/11/2025, 12:37am, 9:29am, 5:35pm), tylenol 650mg PO q6 prn pain 1-3, headache, temp > 100.4 degrees Fahrenheit, and dilaudid 2mg IV q3 prn pain 4-10 in [facility] Med-Surg floor. I will check vitals, LLE exam, WBC w/diff, ESR, CRP, lactic acid, procalcitonin, blood culture #1 (02/09/2025, 4:43pm), and blood culture #2 (02/09/2025, 5:25pm) in the 02/11/2025 am. Of note, etiology of [id number] left lower medial dunlap erysipelas is most likely to involve Streptococcus pyogenes, based on the vibrant red hue and sharp demarcation line erythematous/indurated tissue from uninvolved tissue, and the elaboration of erythrogenic toxin, which is unique to Streptococcus pyogenes. Staphylococcus species can also cause erysipelas, albeit much less frequently (cf., 20% of cases of erysipelas are caused by Staphylococcus species). To this end, I ordered MRSA nares screen testing (02/09/2025, 4:32pm)+. Subsequently, patient continues with vancomycin 1g IV q12 (02/11/2025, 5:39pm). (2) Lymphedema due to chronic inflammation: Plan: To address #2, patient's lower extremities awaits arrival of tubi-buffing machine tender in the 02/11/2025 am, not only to treat chronic lymphedema by reducing swelling, but also to mitigate acute lymphedema-associated inflammation that exacerbates acute cellulitis, particularly in (morbidly) obese individuals. In addition, patient was ordered to maintain complete bedrest as well as to elevate both lower extremities above the level of the heart while under complete bedrest; this triad of supportive measures involving (1) LISSETTE wrap, (2) complete bedrest, and (3) leg elevation complement empiric antibiotic therapy outlined in bullet #1 above, by drawing excess inflammatory fluid (e.g., edema) away from the affected/infected left medial dunlap. (3) Hypokalemia: Plan: To address #3, patient received KCl 40meq PO x 1 dose (02/09/2025, 5:36pm) in [facility] ER bed #A9A. Acute hypokalemia has improved, but persists, as shown below: cf., K 3.2 mmol/L (02/09/2025, 4:43pm). cf., K 3.5 mmol/L (02/10/2025, 6:42am). Subsequently, patient received KCl 40meq PO x 1 dose (02/10/2025, 5:46pm). Subsequently, acute hypokalemia RESOLVED, as shown below: cf., K 4.7 mmol/L (02/11/2025, 9:38pm). cf., K 4.3 mmol/L (02/12/2025, 6:38am). (4) Anemia: Plan: To address #4, patient underwent iron studies (e.g., Fe, TIBC, ferritin) and repeat Hb level testing in the 02/10/2025 am, both of which were unremarkable in ascertaining the underlying etiology of patient's microcytic, hypochromic anemia. cf., normal Fe 32 ug/dL, normal TIBC 413 ug/dL, normal ferritin 10.2 ng/mL (02/09/2025, 4:43pm). cf., Hb 10.4, MCV 77.0, MCHC 31.7 (02/09/2025, 4:43pm). cf., Hb 9.7, MCV 78.7, MCHC 30.2 (02/10/2025, 6:42am). cf., Hb 8.9, MCV 79.4, MCHC 30.4 (02/11/2025, 3:42am). Subsequently, I will check repeat Hb level in the 02/14/2025 am, and I will reserve packed RBC transfusion for Hb level less than 7 g/dL. Admission and Anticipated Discharge Date Admission Date: February 09, 2025 Subjective "I feel better today (02/13/2025). The swelling and hardness in my left inside dunlap is going down today (02/13/2025) after I started the IV antibiotics (02/09/2025)." Review of Systems Constitutional: Positive for 0 out of 10 point intensity pain scale pain in left medial dunlap on 02/13/2025 after receiving dilaudid 2mg IV q2 prn pain rated 4 to 10 Positive for 0 out of 10 point intensity pain scale pain in left medial dunlap on 02/12/2025 after receiving dilaudid 2mg IV q2 prn pain rated 4 to 10 Positive for 0 out of 10 point intensity pain scale pain in left medial dunlap on 02/11/2025 after receiving dilaudid 2mg IV q2 prn pain rated 4 to 10. Positive for 6 out of 10 point intensity pain scale pain in left medial dunlap on 02/10/2025 after receiving dilaudid 2mg IV q3 prn pain rated 4 to 10. Negative for antecedent/coincident fevers, chills, diaphoresis, cough, wheeze, sore throat, hemoptysis, chest pains, palpitations, pleurisy, nausea, vomiting, diarrhea, abdominal pain, pelvic pain, hematemesis, hematochezia, melena, hematuria, dysuria, frequency, urgency, headaches, dizziness, lightheadedness, visual changes, hearing changes, weakness, falls, syncope, trauma, travel history, sick contacts, or food/drug ingestions novel or new. All other review of systems are reported as negative by the patient on 02/13/2025. Physical Exam Constitutional: General: Comfortable, cooperative, coherent. Wide awake and alert. Not confused, lethargic, or obtunded. Patient speaks in complete, fluent, and articulate sentences without pause, interruption, cough, or wheeze. HEENT: NC/AT. EOMI. PERRL. No nystagmus, gaze paresis, anisocoria, miosis, mydriasis, chemosis, hyphema, scleral injection, conjunctivitis, or pterygium. No otorrhea. No rhinorrhea. Neck: Supple, no stridor, bruit, or goiter. Jugular venous pressure 3 cm above the sternal angle of Dc, which is typically 5 cm above the right atrium. Lymph: No anterior/posterior cervical lymphadenopathy, supraclavicular/infraclavicular lymphadenopathy, axilla/epitrochlear/inguinal lymphadenopathy. Chest: Symmetric rise and fall with respirations. Non-tender to palpation. Heart: RRR, S1 and S2. No S3 or S4 summation gallop. No tripartite friction rub. No murmur. Lungs: Clear to auscultation and percussion. No audible expiratory wheeze, egophony, pectoriloquy, increase in tactile fremitus, or flatness/dullness to percussion at the bases. Abd: Soft, non-tender, non-distended. Bowel sounds auscultated in all 4 quadrants. No rebound, guarding, Morelos's sign, or organomegaly. Ext: No clubbing, cyanosis. 1+ non-pitting left lower leg edema, most pronounced at the left posterior leg, just above the ankle, overlying the left Achilles tendon. 2+ pedal pulses bilaterally. Skin: No decubitus ulcer or enanthem. Bright carnelian red erythema (most pronounced on left medial aspect of left lower dunlap, compared to left lateral aspect of left knee/left upper-lower dunlap) with induration, warmth, and tendern ess @ left medial aspect of left lower dunlap, non-circumferential, sharply demarcated from non-indurated skin of left lower dunlap. No fluctuance, crepitus, discharge (sanguineous, serous, suppurative), ulceration, malodor, lymphangitic streaking, or desquamation. Of note, despite patient's underlying, chronic lymphedema of left [id number] for the past 13 years, erythema spares the left foot completely. Neuro: No tremors, tics, or myoclonus. DTR+. 5/5 motor strength in all 4 extremities, both proximally and distally. Urology: No pulido catheter. No urethral discharge. Results & Data Results & Data Vital Signs (Past 12 Hours) Vital Signs Temp Pulse Resp BP Pulse Ox O2 Del Method 02/13/25 15:29 36.6 C 46 L 16 105/62 98 Room Air 02/13/25 07:12 36.7 C 59 L 16 114/69 97 Room Air Laboratory Results WBC 5.97, N50 L40 M8 E3 B1, Hb 10.4, MCV 77.0, MCHC 31.7, platelet 185 (02/09/2025, 4:43pm). WBC 5.13, no differential, Hb 9.7, MCV 78.7, MCHC 30.2, platelet 206 (02/10/2025, 6:42am). WBC 4.80, no differential, Hb 8.9, MCV 79.4, MCHC 30.4, platelet 173 (02/11/2025, 3:42am). Fe 32 ug/dL, TIBC 413 ug/dL, ferritin 10.2 ng/mL (02/09/2025, 4:43pm). ESR 33 mm/hr (02/09/2025, 4:43pm). ESR 19 mm/hr (02/10/2025, 6:42am). ESR 15 mm/hr (02/11/2025, 3:42am). ESR 18 mm/hr (02/12/2025, 6:38am). ESR 22 mm/hr (02/13/2025, 5:51am). CRP < 0.50 mg/dL (02/09/2025, 4:43pm). CRP < 0.50 mg/dL (02/10/2025, 6:42am). CRP < 0.50 mg/dL (02/11/2025, 3:42am). CRP < 0.50 mg/dL (02/12/2025, 6:38am). CRP < 0.50 mg/dL (02/13/2025, 5:51am). Lactic acid #1 0.8 mmol/L (02/09/2025, 4:43pm). Lactic acid #2 1.2 mmol/L (02/09/2025, 7:39pm). Lactic acid #3 1.2 mmol/L (02/09/2025, 9:26pm). Lactic acid #4 0.8 mmol/L (02/10/2025, 6:42am). Lactic acid #5 0.4 mmol/L (02/11/2025, 3:42am). Lactic acid #6 0.5 mmol/L (02/12/2025, 6:38am). Procalcitonin #1 < 0.02 ng/mL (02/09/2025, 4:43pm). Procalcitonin #2 < 0.02 ng/mL (02/10/2025, 6:42am). Procalcitonin #3 < 0.02 ng/mL (02/11/2025, 3:42am). Procalcitonin #4 0.04 ng/mL (02/12/2025, 6:38am). Procalcitonin #5 < 0.02 ng/mL (02/13/2025, 5:51am). Blood culture #1 (02/09/2025, 4:43pm): Blood culture #2 (02/09/2025, 5:25pm): PG Care Time/CCT Total # of Minutes Spent Total Time Spent with Patient: Total time spent is greater than 50% in coordination of care (as documented) at patient's floor/unit and/or counseling patient: Coding Level of Care Code 51402 SUB INP/OBS CARE 2/35MIN Diagnoses Erysipelas of left lower extremity A46 Lymphedema due to chronic inflammation I89.0 Hypokalemia E87.6 Anemia D64.9
[2025-02-14 07:52] LABS: Anion Gap 3 (3-11); Blood Urea Nitrogen 14 mg/dl (6-23); Calcium 8.5 mg/dl (8.6-10.3); Carbon Dioxide 29 mmol/L (21-32); Chloride 106 mmol/L (98-107); Creatinine Clr Calc Pharmacy 169.9 ml/min; Glucose 75 mg/dl (70-99(Fasting)); Potassium 4.5 mmol/L (3.5-5.1); Sodium 138 mmol/L (136-145)
--- NOTE | 2025-02-14 20:37 | Hospitalist Progress Note ---
Date of Service February 14, 2025 Assessment & Plan (1) Erysipelas of left lower extremity: Plan: To address #1, patient was started on vancomycin 2.5g IV x 1 dose (02/09/2025, 4:47pm), cefepime 2g IV x 1 dose (02/09/2025, 5:26pm), toradol 30mg IV x 1 dose (02/09/2025, 5:25pm), and dilaudid 0.5mg IV x 1 dose (02/09/2025, 5:35pm) in [facility] ER bed #A9A. Patient received vancomycin 1.75g IV q12 x 3 doses (day #17 on 02/10/2025, 5:04am, 5:42pm; 02/11/2025, 5:17am), cefepime 2g IV q8 x 6 doses (day #1/7 on 02/10/2025, 12:10am, 8:59am, 5:38pm; 02/11/2025, 12:37am, 9:29am, 5:35pm), tylenol 650mg PO q6 prn pain 1-3, headache, temp > 100.4 degrees Fahrenheit, and dilaudid 2mg IV q3 prn pain 4-10 in [facility] Med-Surg floor. I will check vitals, LLE exam, WBC w/diff, ESR, CRP, lactic acid, procalcitonin, blood culture #1 (02/09/2025, 4:43pm), and blood culture #2 (02/09/2025, 5:25pm) in the 02/11/2025 am. Of note, etiology of uaqne-gs-pgpahig left lower medial dunlap erysipelas is most likely to involve Streptococcus pyogenes, based on the vibrant red hue and sharp demarcation line erythematous/indurated tissue from uninvolved tissue, and the elaboration of erythrogenic toxin, which is unique to Streptococcus pyogenes. Staphylococcus species can also cause erysipelas, albeit much less frequently (cf., 20% of cases of erysipelas are caused by Staphylococcus species). To this end, I ordered MRSA nares screen testing (02/09/2025, 4:32pm)+. Subsequently, patient continues with vancomycin 1g IV q12 (02/11/2025, 5:39pm). (2) Lymphedema due to chronic inflammation: Plan: To address #2, patient's lower extremities awaits arrival of tubi-cell tender in the 02/11/2025 am, not only to treat chronic lymphedema by reducing swelling, but also to mitigate acute lymphedema-associated inflammation that exacerbates acute cellulitis, particularly in (morbidly) obese individuals. In addition, patient was ordered to maintain complete bedrest as well as to elevate both lower extremities above the level of the heart while under complete bedrest; this triad of supportive measures involving (1) LISSETTE wrap, (2) complete bedrest, and (3) leg elevation complement empiric antibiotic therapy outlined in bullet #1 above, by drawing excess inflammatory fluid (e.g., edema) away from the affected/infected left medial dunlap. (3) Hypokalemia: Plan: To address #3, patient received KCl 40meq PO x 1 dose (02/09/2025, 5:36pm) in [facility] ER bed #A9A. Acute hypokalemia has improved, but persists, as shown below: cf., K 3.2 mmol/L (02/09/2025, 4:43pm). cf., K 3.5 mmol/L (02/10/2025, 6:42am). Subsequently, patient received KCl 40meq PO x 1 dose (02/10/2025, 5:46pm). Subsequently, acute hypokalemia RESOLVED, as shown below: cf., K 4.7 mmol/L (02/11/2025, 9:38pm). cf., K 4.3 mmol/L (02/12/2025, 6:38am). cf., K 4.5 mmol/L (02/14/2025, 7:13am). (4) Anemia: Plan: To address #4, patient underwent iron studies (e.g., Fe, TIBC, ferritin) and repeat Hb level testing in the 02/10/2025 am, both of which were unremarkable in ascertaining the underlying etiology of patient's microcytic, hypochromic anemia. cf., normal Fe 32 ug/dL, normal TIBC 413 ug/dL, normal ferritin 10.2 ng/mL (02/09/2025, 4:43pm). cf., Hb 10.4, MCV 77.0, MCHC 31.7 (02/09/2025, 4:43pm). cf., Hb 9.7, MCV 78.7, MCHC 30.2 (02/10/2025, 6:42am). cf., Hb 8.9, MCV 79.4, MCHC 30.4 (02/11/2025, 3:42am). Subsequently, I have opted to hold off further Hb level testing in order to conserve and preserve patient's moses blood supply. Admission and Anticipated Discharge Date Admission Date: February 09, 2025 Subjective "I feel better today (02/14/2025). The swelling and hardness in my left inside dunlap is going down today (02/14/2025) after I started the IV antibiotics (02/09/2025). I will be ready to go home tomorrow (02/14/2025)." Review of Systems Constitutional: Positive for 0 out of 10 point intensity pain scale pain in left medial dunlap on 02/14/2025 after receiving dilaudid 2mg IV q2 prn pain rated 4 to 10. Positive for 0 out of 10 point intensity pain scale pain in left medial dunlap on 02/13/2025 after receiving dilaudid 2mg IV q2 prn pain rated 4 to 10. Positive for 0 out of 10 point intensity pain scale pain in left medial dunlap on 02/12/2025 after receiving dilaudid 2mg IV q2 prn pain rated 4 to 10. Positive for 0 out of 10 point intensity pain scale pain in left medial dunlap on 02/11/2025 after receiving dilaudid 2mg IV q2 prn pain rated 4 to 10. Positive for 6 out of 10 point intensity pain scale pain in left medial dunlap on 02/10/2025 after receiving dilaudid 2mg IV q3 prn pain rated 4 to 10. Negative for antecedent/coincident fevers, chills, diaphoresis, cough, wheeze, sore throat, hemoptysis, chest pains, palpitations, pleurisy, nausea, vomiting, diarrhea, abdominal pain, pelvic pain, hematemesis, hematochezia, melena, hematuria, dysuria, frequency, urgency, headaches, dizziness, lightheadedness, visual changes, hearing changes, weakness, falls, syncope, trauma, travel history, sick contacts, or food/drug ingestions novel or new. All other review of systems are reported as negative by the patient on 01/24. Physical Exam Constitutional: General: Comfortable, cooperative, coherent. Wide awake and alert. Not confused, lethargic, or obtunded. Patient speaks in complete, fluent, and articulate sentences without pause, interruption, cough, or wheeze. HEENT: NC/AT. EOMI. PERRL. No nystagmus, gaze paresis, anisocoria, miosis, mydriasis, chemosis, hyphema, scleral injection, conjunctivitis, or pterygium. No otorrhea. No rhinorrhea. Neck: Supple, no stridor, bruit, or goiter. Jugular venous pressure 3 cm above the sternal angle of Dc, which is typically 5 cm above the right atrium. Lymph: No anterior/posterior cervical lymphadenopathy, supraclavicular/infraclavicular lymphadenopathy, axilla/epitrochlear/inguinal lymphadenopathy. Chest: Symmetric rise and fall with respirations. Non-tender to palpation. Heart: RRR, S1 and S2. No S3 or S4 summation gallop. No tripartite friction rub. No murmur. Lungs: Clear to auscultation and percussion. No audible expiratory wheeze, egophony, pectoriloquy, increase in tactile fremitus, or flatness/dullness to percussion at the bases. Abd: Soft, non-tender, non-distended. Bowel sounds auscultated in all 4 quadrants. No rebound, guarding, Morelos's sign, or organomegaly. Ext: No clubbing, cyanosis. 1+ non-pitting left lower leg edema, most pronounced at the left posterior leg, just above the ankle, overlying the left Achilles tendon. 2+ pedal pulses bilaterally. Skin: No decubitus ulcer or enanthem. Bright carnelian red erythema (most pronounced on left medial aspect of left lower dunlap, compared to left lateral aspect of left knee/left upper-lower dunlap) with induration, warmth, and tenderness @ left medial aspect of left lower dunlap, non-circumferential, sharply demarcated from non-indurated skin of left lower dunlap. No fluctuance, crepitus, discharge (sanguineous, serous, suppurative), ulceration, malodor, lymphangitic streaking, or desquamation. Of note, despite patient's underlying, chronic lymphedema of left gdbt-go-cguz for the past 13 years, erythema spares the left foot completely. Neuro: No tremors, tics, or myoclonus. DTR+. 5/5 motor strength in all 4 extremities, both proximally and distally. Urology: No pulido catheter. No urethral discharge. Results & Data Results & Data Vital Signs (Past 12 Hours) Vital Signs Temp Pulse Resp BP Pulse Ox O2 Del Method 02/14/25 14:56 36.7 C 54 L 16 121/67 98 Room Air Laboratory Results WBC 5.97, N50 L40 M8 E3 B1, Hb 10.4, MCV 77.0, MCHC 31.7, platelet 185 (02/09/2025, 4:43pm). WBC 5.13, no differential, Hb 9.7, MCV 78.7, MCHC 30.2, platelet 206 (02/10/2025, 6:42am). WBC 4.80, no differential, Hb 8.9, MCV 79.4, MCHC 30.4, platelet 173 (02/11/2025, 3:42am). Fe 32 ug/dL, TIBC 413 ug/dL, ferritin 10.2 ng/mL (02/09/2025, 4:43pm). ESR 33 mm/hr (02/09/2025, 4:43pm). ESR 19 mm/hr (02/10/2025, 6:42am). ESR 15 mm/hr (02/11/2025, 3:42am). ESR 18 mm/hr (02/12/2025, 6:38am). ESR 22 mm/hr (02/13/2025, 5:51am). ESR 24 mm/hr (02/14/2025, 7:13am). CRP < 0.50 mg/dL (02/09/2025, 4:43pm). CRP < 0.50 mg/dL (02/10/2025, 6:42am). CRP < 0.50 mg/dL (02/11/2025, 3:42am). CRP < 0.50 mg/dL (02/12/2025, 6:38am). CRP < 0.50 mg/dL (02/13/2025, 5:51am). CRP < 0.50 mg/dL 91, 7:13am). Lactic acid #1 0.8 mmol/L (02/09/2025, 4:43pm). Lactic acid #2 1.2 mmol/L (02/09/2025, 7:39pm). Lactic acid #3 1.2 mmol/L (02/09/2025, 9:26pm). Lactic acid #4 0.8 mmol/L (02/10/2025, 6:42am). Lactic acid #5 0.4 mmol/L (02/11/2025, 3:42am). Lactic acid #6 0.5 mmol/L (02/12/2025, 6:38am). Lactic acid #7 0.5 mmol/L (02/14/2025, 7:13am). Procalcitonin #1 < 0.02 ng/mL (02/09/2025, 4:43pm). Procalcitonin #2 < 0.02 ng/mL (02/10/2025, 6:42am). Procalcitonin #3 < 0.02 ng/mL (02/11/2025, 3:42am). Procalcitonin #4 0.04 ng/mL (02/12/2025, 6:38am). Procalcitonin #5 < 0.02 ng/mL (02/13/2025, 5:51am). Procalcitonin #6 < 0.02 ng/mL (02/14/2025, 7:13am). Blood culture #1 (02/09/2025, 4:43pm): Blood culture #2 (02/09/2025, 5:25pm): PG Care Time/CCT Total # of Minutes Spent Total Time Spent with Patient: Total time spent is greater than 50% in coordination of care (as documented) at patient's floor/unit and/or counseling patient: Coding Level of Care Code 89097 SUB INP/OBS CARE 235MIN Diagnoses Erysipelas of left lower extremity A46 Lymphedema due to chronic inflammation I89.0 Hypokalemia E87.6 Anemia D64.9
[2025-02-15 08:12] LABS: Hematocrit (blood only) 31.6 % (42.0-52.0); Hemoglobin 9.5 g/dl (14.0-18.0); Mean Corpuscular Hemoglobin 23.8 pg (25.0-34.0); Mean Corpuscular Volume 79.0 fL (80.0-100.0); Platelet Count 194 K/uL (130-400); RDW Standard Deviation 46.6 fL (36.4-46.3); Red Blood Count 4.00 M/uL (4.70-6.10); White Blood Count 5.20 K/ul (4.8-10.8)
[2025-02-15 08:32] LABS: Anion Gap 2 (3-11); Blood Urea Nitrogen 16 mg/dl (6-23); Calcium 8.9 mg/dl (8.6-10.3); Carbon Dioxide 30 mmol/L (21-32); Chloride 106 mmol/L (98-107); Creatinine Clr Calc Pharmacy 155.4 ml/min; Glucose 79 mg/dl (70-99(Fasting)); Potassium 5.0 mmol/L (3.5-5.1); Sodium 138 mmol/L (136-145)
--- NOTE | 2025-02-15 11:45 | Hospitalist Progress Note ---
Date of Service February 15, 2025 Assessment & Plan (1) Erysipelas of left lower extremity: Plan: Mr. Bienvenido Bush is a 49 yo male with PMH of lymphadema, morbid obesity s/p bypass surgery at [facility] 10-15 years ago. he been having left leg cellulitis and presented to our ED for evaluation. he was found to has left leg cellulitis, erysipelas. started on cefepime and vancomycin in addition, he mentioned significant pain and needed IV dilaudid. he was noted to has significant lymphedema and recommended LISSETTE wrapped and leg elevation.' he has anemia, he will required GI evaluation for colonoscopy and EGD on outpatient basis To address #1, patient was started on vancomycin 2.5g IV x 1 dose (02/09/2025, 4:47pm), cefepime 2g IV x 1 dose (02/09/2025, 5:26pm), toradol 30mg IV x 1 dose (02/09/2025, 5:25pm), and dilaudid 0.5mg IV x 1 dose (02/09/2025, 5:35pm) in [facility] ER bed #A9A. Patient received vancomycin 1.75g IV q12 x 3 doses (day #1/7 on 02/10/2025, 5:04am, 5:42pm; 02/11/2025, 5:17am), cefepime 2g IV q8 x 6 doses (day #1/7 on 02/10/2025, 12:10am, 8:59am, 5:38pm; 02/11/2025, 12:37am, 9:29am, 5:35pm), tylenol 650mg PO q6 prn pain 1-3, headache, temp > 100.4 degrees Fahrenheit, and dilaudid 2mg IV q3 prn pain 4-10 in [facility] Med-Surg floor. I will check vitals, LLE exam, WBC w/diff, ESR, CRP, lactic acid, procalcitonin, blood culture #1 (02/09/2025, 4:43pm), and blood culture #2 (02/09/2025, 5:25pm) in the 02/11/2025 am. Of note, etiology of mswdy-hf-hpnkxpa left lower medial dunlap erysipelas is most likely to involve Streptococcus pyogenes, based on the vibrant red hue and sharp demarcation line erythematous/indurated tissue from uninvolved tissue, and the elaboration of erythrogenic toxin, which is unique to Streptococcus pyogenes. Staphylococcus species can also cause erysipelas, albeit much less frequently (cf., 20% of cases of erysipelas are caused by Staphylococcus species). To this end, I ordered MRSA nares screen testing (02/09/2025, 4:32pm)+. Subsequently, patient continues with vancomycin 1g IV q12 (02/11/2025, 5:39pm). (2) Lymphedema due to chronic inflammation: Plan: To address #2, patient's lower extremities awaits arrival of tubi-business analyst in the 02/11/2025 am, not only to treat chronic lymphedema by reducing swelling, but also to mitigate acute lymphedema-associated inflammation that exacerbates acute cellulitis, particularly in (morbidly) obese individuals. In addition, patient was ordered to maintain complete bedrest as well as to elevate both lower extremities above the level of the heart while under complete bedrest; this triad of supportive measures involving (1) LISSETTE wrap, (2) complete bedrest, and (3) leg elevation complement empiric antibiotic therapy outlined in bullet #1 above, by drawing excess inflammatory fluid (e.g., edema) away from the affected/infected left medial dunlap. (3) Hypokalemia: (4) Anemia: Plan: To address #4, patient underwent iron studies (e.g., Fe, TIBC, ferritin) and repeat Hb level testing in the 02/10/2025 am, both of which were unremarkable in ascertaining the underlying etiology of patient's microcytic, hypochromic anemia. cf., normal Fe 32 ug/dL, normal TIBC 413 ug/dL, normal ferritin 10.2 ng/mL (02/09/2025, 4:43pm). he need to f/u with GI for colonoscopy and EGD Admission and Anticipated Discharge Date Admission Date: February 09, 2025 Subjective he's on IV cefepime and vancomycin stated his leg leg pain improving and eager to discharge he has severe lymphedema (much worse on the left compare to right) has has cysts surgery done at [facility]. in addition, he used to weigh 700 lbs, s/p weight loss surgery administer iV lasix today, I suspect he will has recurrent cellulitis given his tendency for lymphedema he was advised on low dose diuretic 2-3 times per week Review of Systems Review of Systems: Constitutional: No Weight Change, No Fever, No Chills, No Night Sweats, No Fatigue, No Malaise Cardiovascular: No Chest Pain, No SOB, No PND, No Dyspnea on Exertion, No Orthopnea, No Claudication, No Edema, No Palpitations Respiratory: No Cough, No Sputum, No Wheezing, No Smoke Exposure, No Dyspnea Gastrointestinal: No Nausea, No Vomiting, No Diarrhea, No Constipation, No Pain, No Heartburn, No Anorexia, No Dysphagia, No Hematochezia, No Melena, No Flatulence, No Jaundice Musculoskeletal: left leg pain, + for pain. Skin: lymphedema, worsening erythema Neuro: No Weakness, No Numbness, No Paresthesias, No Loss of Consciousness, No Syncope, No Dizziness, No Headache, No Coordination Changes, No Recent Falls Heme/Lymph: No Bruising, No Bleeding, No Transfusions History, No Lymphadenopathy Physical Exam Physical Exam: VITALS: Reviewed. WEIGHT/BMI reviewed. GEN: Healthy appearing, well-developed, NAD. -Head: NC/AT; -Mouth and throat: MMM. Normal gums, muc stephanie, palate,. Good dentition. NECK: Supple, with no masses. CV: RRR, no m/r/g. LUNGS: CTAB, no w/r/c. ABD: Soft, NT/ND, NBS, no masses or organomegaly. : N/A SKIN: Warm, well perfused. No skin rashes or abnormal lesions. MSK: left leg cellulitis, much improved; non-tender to palpation no discharge noted. NEURO: AAOx3 Results & Data Results & Data Vital Signs (Past 12 Hours) Vital Signs Temp Pulse Resp BP Pulse Ox O2 Del Method 02/15/25 07:19 36.6 C 58 L 18 112/66 96 Room Air Laboratory Results Laboratory Results - last 72 hr 02/12/25 02/13/25 02/14/25 22:32 05:51 07:13 WBC RBC Hgb Hct MCV MCH MCHC RDW Std Deviation RDW Coeff of Rajiv Plt Count MPV ESR 22 H 24 H Sodium 138 Potassium 4.5 Chloride 106 Carbon Dioxide 29 Anion Gap 3 BUN 14 Creatinine 0.76 0.75 Est Cr Clr Drug Dosing 167.6 169.9 eGFR 111.56 112.01 BUN/Creatinine Ratio 18.7 Glucose 75 Lactate 0.8 Calcium 8.5 L C-Reactive Protein < 0.50 < 0.50 Procalcitonin < 0.02 < 0.02 Random Vancomycin 15.1 02/14/25 02/15/25 02/15/25 07:15 07:46 07:55 WBC 5.20 RBC 4.00 L Hgb 9.5 L Hct 31.6 L MCV 79.0 L MCH 23.8 L MCHC 30.1 L RDW Std Deviation 46.6 H RDW Coeff of Rajiv 16.4 H Plt Count 194 MPV 11.1 ESR 31 H Sodium 138 Potassium 5.0 Chloride 106 Carbon Dioxide 30 Anion Gap 2 L BUN 16 Creatinine 0.82 Est Cr Clr Drug Dosing 155.4 eGFR 109.03 BUN/Creatinine Ratio 19.5 Glucose 79 Lactate 0.5 Calcium 8.9 C-Reactive Protein < 0.50 Procalcitonin Random Vancomycin PG Care Time/CCT Total # of Minutes Spent Total Time Spent with Patient: Total time spent is greater than 50% in coordination of care (as documented) at patient's floor/unit and/or counseling patient: Coding Level of Care Code 81103 SUB INP/OBS CARE 05/19MIN Diagnoses Erysipelas of left lower extremity A46 Lymphedema due to chronic inflammation I89.0 Hypokalemia E87.6 Anemia D64.9 Time Spent (min) 25
--- NOTE | 2025-02-15 12:54 | Communication Note ---
Date of Service: February 15, 2025 Patient Id Prescription # Sold Filled Written Drug Label Qty Days Strength MME* Prescriber Pharmacy Payment REFILL #/Auth State Detail 1 [id number] 07/14/2024 07/12/2024 07/12/2024 HYDR Ocodone BITARTRATE 10 MG ORAL TABLET/ACETAMINOPHEN 325 MG (Tablet) 120.0 30 325 MG-10 M G 40.0 [facility] STATE Medicare 0 / 0 PA 1 [id number] 06/08/2024 06/08/2024 06/08/2024 HYDR Ocodone BITARTRATE 10 MG ORAL TABLET/ACETAMINOPHEN 325 MG (Tablet) 120.0 30 325 MG-10 M G 40.0 [facility] STATE Medicare 0 / 0 PA 1 [id number] 06/08/2024 06/08/2024 06/08/2024 ALPRAZolam (Tablet) 30. 0 15 0.25 MG NA [facility] STATE Medicare 0 / 0 PA 1 [id number] 05/11/2024 05/11/2024 05/11/2024 HYDR Ocodone BITARTRATE 10 MG ORAL TABLET/ACETAMINOPHEN 325 MG (Tablet) 120.0 30 325 MG-10 M G 40.0 [facility] STATE Medicare 0 / 0 PA 1 [id number] 05/11/2024 05/11/2024 05/11/2024 ALPRAZolam (Tablet) 20. 0 10 0.25 MG NA [facility] STATE Medicare 0 / 0 PA 1 [id number] 05/01/2024 05/01/2024 05/01/2024 ALPRAZolam (Tablet) 10. 0 5 0.25 MG NA [facility] STATE Medicare 0 / 0 PA 1 [id number] 04/13/2024 04/13/2024 04/13/2024 HYDR Ocodone BITARTRATE 10 MG ORAL TABLET/ACETAMINOPHEN 325 MG (Tablet) 120.0 30 325 MG-10 M G 40.0 [facility] STATE Medicare 0 / 0 PA 1 [id number] 04/13/2024 04/13/2024 04/13/2024 ALPRAZolam (Tablet) 14. 0 7 0.25 MG NA [facility] Medicare 0 / 0 PA 1 [id number] 04/04/2024 04/04/2024 04/04/2024 HYDR Ocodone BITARTRATE 10 MG ORAL TABLET/ACETAMINOPHEN 325 MG (Tablet) 28.0 7 325 MG-10 M G 40.0 [facility] Commercial Insurance 0 / 0 PA 1 [id number] 04/04/2024 04/04/2024 04/04/2024 ALPR AZolam (Tablet)
[2025-02-15] MEDS ORDERED: FUROSEMIDE 40 MG/4 ML VIAL IV ONE (13:45)
[2025-02-15] MEDS: FUROSEMIDE 40 MG/4 ML VIAL IV ONE (13:49)
--- NOTE | 2025-02-15 17:19 | Discharge Summary ---
Discharge Summary Date of Service February 15, 2025 Principal Dx & Hospital Course #1 = Principal Diagnosis (1) Lymphedema due to chronic inflammation: (2) Erysipelas of left lower extremity: (3) Hypokalemia: Plan he has hx of morbid obesity s/p gastric bypass surgery 10-15 years ago at [place], has b/l lymphedema. he's is recently divorce and relocated from [place] to [place] to be close to long time friend her for LEFT leg cellulitis and erysipelas, . and s/p on IV cefepime and vancomycin, his cellulitis continued to improved. his blood culture is negative he was also found to has hypokalemia and s/p repletion . he need IV dilaudid for pain control, on 02/15/2025, he mentioned his cellulitis and pain much improved. he was dc home with duricef and doxycycline. he was provided with low dose lasix every other days he has anemia, and will benefit from GI evaluation Admission HPI Per Admitting Provider 49 years old male with PMH of FULL CODE @ home alone, obesity with BMI 38.7 (height 177.8 cm; weight 122.4 kg), s/p duodenal switch surgery (e.g., combination of gastric sleeve and bilio-pancreatic diversion (BPD))(2018, [facility], [place], [place]) with patient losing significant weight (e.g., pre-surgical weight 700 pounds in 2018; post-surgical weight now, 275 pounds on 02/09/2025), incipient lymphedema of right mzuu-pi-fngn over the past 1 year, chronic lymphedema of left npju-lr-oiuq for the past 13 years, complicated by almost annual incidents of left gliu-nl-dooj cellulitis with abscess formation requiring surgical drainage x 1 (2008, [facility], [facility] [place], [place]), treated supportively thereafter with LLE compression bandage wraps, who reports: "My left leg is infected; it started on the inside of my left upper thigh last Tuesday (01/30/2025), and I had fevers and chills on that same day Tuesday (01/30/2025), so I went to see my PCP Mr. Zaki Faria PA-C (JANNETTE Landers), and he prescribed keflex 500mg by mouth 4 times a day for 7 days. I told him before he prescribed it that I have taken keflex before to treat cellulitis of my left leg in the past and that it doesn't work, but he prescribed keflex 500mg by mouth 4 times a day for 7 days anyway, so I followed his advice, and I took all 28 tablets. I finished taking keflex on Tuesday (02/08/2025), and the keflex did not work. I didn't feel like calling my PCP CHOLO Payne (JANNETTE Ladners), so I came to [facility] today (02/09) to get it checked out. I haven't had any more fevers or chills since that last Tuesday (01/30/2025), but instead, I am not having serious pain in my left inside dunlap. The pain is sharp, stabbing, and constant, and doesn't go away at night, so I can't sleep for several nights now. The pain is an 8 (out of 10 point intensity scale) and I haven't taken medicine to take the pain away, as I'm worried that the infection is bad and may need to be drained again. There are no open wounds or ulcers on my left inside dunlap, and I don't see any pus or blood leaking out of my left inside dunlap, but still, it hurts so much, doc, I couldn't drive my car, so I had to get a friend drive me from my home to [facility]; we arrived this afternoon (02/09/2025, 4:00pm)." Patient denies antecedent/coincident diaphoresis, cough, wheeze, sore throat, hemoptysis, shortness of breath, dyspnea on exertion, chest pains, palpitations, pleurisy, nausea, vomiting, diarrhea, abdominal pain, pelvic pain, hematemesis, hematochezia, melena, hematuria, dysuria, frequency, urgency, flank pain, headaches, dizziness, lightheadedness, visual changes, hearing changes, weakness, falls, syncope, trauma, travel history, sick contacts, or food/drug ingestions novel or new. All other review of systems are reported as negative by the patient on admission date 02/09/2025. In [facility] bed #A9A, patient was afebrile at 36.7 degrees Celsius, HR 43, RR 16, O2 sat 100% on room air, and BP 132/68 (02/09/2025, 4:14pm). Exam was noted for bright carnelian red erythema (most pronounced on left medial aspect of left lower dunlap, compared to left lateral aspect of left knee/left upper-lower dunlap) with induration, warmth, and tenderness @ left medial aspect of left lower dunlap, non-circumferential, sharply demarcated from non-indurated skin of left lower dunlap. No fluctuance, crepitus, discharge (sanguineous, serous, suppurative), ulceration, malodor, lymphangitic streaking, or desquamation. Of note, despite patient's underlying, chronic lymphedema of left qvxy-rz-zuge for the past 13 years, erythema spares the left foot completely. Labs in [facility] bed #A9A included: WBC 5.97, N50 L40 M8 E3 B1, Hb 10.4, MCV 77.0, MCHC 31.7, platelet 185 (02/09/2025, 4:43pm). ESR (02/09/2025, 4:43pm). CRP (02/09/2025, 4:43pm). Lactic acid #1 (02/09/2025, 4:43pm). Lactic acid #2 (02/09/2025, 8:43pm). Procalcitonin #1 ___ (02/09/2025, 4:43pm). Blood culture #1 (02/09/2025, 4:43pm): Blood culture #2 (02/09/2025, 5:25pm): MRSA nares screen testing (02/09/2025, 7:47pm): Na 139, K 3.2, CO2 25, anion gap 6, BUN 9, creatinine 0.89, glucose 81, Ca 8.6, AST 16, ALT 10, ALK PHOS 136, total bili 0.4 (02/09/2025, 4:43pm). Troponin-I #1 4.5 pg/mL (02/09/2025, 4:43pm). Additional testing in [facility] bed #A9A included: LLE venous doppler (02/09/2025, 4:50pm): (rule out acute LLE DVT). Patient was subsequently admitted to the inpatient hospitalist service @ [facility] on 02/09/2025 with the following diagnoses: 1. Uuaae-bd-kjbzgwm left lower medial dunlap erysipelas, non-suppurative, non- ulcerative, non-bullous, R/O hematogenous dissemination. 2. Chronic lymphedema of the left sdpj-fa-fucc over the past 13 years; incipient lymphedema of right wvvr-jd-ukoe over the past 1 year. 3. Acute hypokalemia with admission K 3.2 mmol/L (02/09/2025, 4:43pm). 4. Microcytic, hypochromic anemia with admission Hb 10.4 g/dL, MCV 77.0, MCHC 31.7 (02/09/2025, 4:43pm). To address #1, patient was started on vancomycin 2.5g IV x 1 dose (02/09/2025, 4:47pm), cefepime 2g IV x 1 dose (02/09/2025, 5:26pm), toradol 30mg IV x 1 dose (02/09/2025, 5:25pm), and dilaudid 0.5mg IV x 1 dose (02/09/2025, 5:35pm) in [facility] bed #A9A. Patient will continue with vancomycin dosing as per Hospital Pharmacy Service (day #05/01 on 02/10/2025 am), cefepime 2g IV q8 (day #1 on 02/10/2025, 1:26am), tylenol 650mg PO q6 prn pain 1-3, headache, temp > 100.4 degrees Fahrenheit, and dilaudid 2mg IV q3 prn pain 4-10 in [facility]urg floor. I will check vitals, LLE exam, WBC w/diff, ESR, CRP, lactic acid, procalcitonin, blood culture #1 (02/09/2025, 4:43pm), and blood culture #2 (02/09/2025, 5:25pm) in the 02/10/2025 am. Of note, etiology of ukyxt-hx-bawhznf left lower medial dunlap erysipelas is most likely to involve Streptococcus pyogenes, based on the vibrant red hue and sharp demarcation line erythematous/indurated tissue from uninvolved tissue, and the elaboration of erythrogenic toxin, which is unique to Streptococcus pyogenes. Staphylococcus species can also cause erysipelas, albeit much less frequently (cf., 20% of cases of erysipelas are caused by Staphylococcus species). To this end, I have ordered MRSA nares screen testing (02/09/2025, 7:47pm). To address #2, patient's lower extremities were both wrapped in LISSETTE elastic bandages, not only to treat chronic lymphedema by reducing swelling, but also to mitigate acute lymphedema-associated inflammation that exacerbates acute cellulitis, particularly in (morbidly) obese individuals. In addition, patient was ordered to maintain complete bedrest as well as to elevate both lower extremities above the level of the heart while under complete bedrest; this triad of supportive measures involving (1) LISSETTE wrap, (2) complete bedrest, and (3) leg elevation complement empiric antibiotic therapy outlined in bullet #1 above, by drawing excess inflammatory fluid (e.g., edema) away from the affected/infected left medial dunlap. To address #3, patient was started on KCl 40meq PO x 1 dose (02/09/2025, 5:36pm) in [facility] bed #A9A. I will check repeat K level in the 02/10/2025 am. To address #4, patient awaits iron studies (e.g., Fe, TIBC, ferritin) and repeat Hb level testing in the 02/10/2025 am. I will reserve packed RBC transfusion for Hb level less than 7 g/dL. Discharge Exam General: no acute distress neuro: AAox3 HEENT:AT/NC heart: Normal s1; s2; RRR lung: CTA b/l; no wheezing MSK: + for left leg edema; no crepitus noted; non tender to palpitation. no erythema abdomen: soft to touch; normoactive bowel sound Discharge Plan Discharge Items Patient Disposition: Home - Home Health Services Reason For Visit: ACUTE LEFT DUNLAP CELLULITIS Discharge Diagnosis: left leg cellulitis, lymphedema hx of morbid obesity s/p bypass surgery Condition on Discharge: Fair Activity: Per Instructions section Lifting: Gradually increase as tolerated Non-emergency contact: Primary Care Provider Call non-emergency contact if: you have any medication questions, your symptoms worsen, your pain is concerning for you and you have a fever Follow-up/Referrals: Zaki Faria PA-C [Primary Care Provider] - 02/25/25 11:00 am Diet: Low Sodium (2gm) Addtl Attending Provider Instructions: you will need to follow up with lymphedema specialist in addition, elevated your left leg on the pillow at night you will be on another 6 day of oral antibiotics if your leg pain worsen, you will return to our ED for evaluation Pending Studies at Discharge: Yes Studies:: recheck your potassium and kidney function in 3-4 days Stand-Alone Forms: My [facility] [employer], Smoking Cessation Medications and DC Order Prescriptions: New cefadroxil 1 gram tablet 1,000 mg PO BID 6 Days Qty: 12 0RF doxycycline hyclate 100 mg tablet 100 mg PO BID 7 Days Qty: 14 0RF furosemide [Lasix] 20 mg tablet 20 mg PO Q OTHER DAY 14 Days Qty: 7 0RF Rx Instructions: recheck your potassium and creatinine Discharge Orders: Discharge Order (Routine); Ordered 02/15/25 Ordered By: Shona Raines/Other Patient Handouts: Understanding Lymphedema, Lymphedema Reducing Risk, Cellulitis Dc, ED Lymphedema Admission Data Admit Date/Time: 02/09/25 18:10 Attending Provider: Shona Gonzalez Admit Provider: James Liu Primary Care Provider: Zaki Faria Other Providers: James Liu; Darling Rachel; Cynthia Caceres; Josephine David; Bettei Delgado; Emelia Harkins; Solange Pope Other Interventions: Discharge Summary Assessment (RN) Last Done: 02/15/25 13:47 Hospital Stay Data Consultations 02/09/25 18:18 ED Decision to Admit Stat 02/15/25 11:37 Consult Infectious Diseases Routine Diagnostic Imagining Performed 02/09/25 16:50 US venous doppler LE LT Stat Pending Results Patient Have Any Pending Studies at Discharge: Yes Discharge Instructions Given to Patient (Per Discharging Provider) you will need to follow up with lymphedema specialist in addition, elevated your left leg on the pillow at night you will be on another 6 day of oral antibiotics if your leg pain worsen, you will return to our ED for evaluation Total Time Total Time Spent Total Time Spent (In Minutes): 35 Coding Level of Care Code 46470 IN/OBS DISCH 30 MIN/LESS Diagnoses Lymphedema due to chronic inflammation I89.0 Erysipelas of left lower extremity A46 Hypokalemia E87.6 Time Spent (min) 25
== END 2025-02-15 14:11 | disposition home or self-care (01) | DRG 603 ==
LOC: ED 16:13 → SUATTDRO 18:10 → 3N 18:10

== ENCOUNTER 2025-04-15 09:07 | Inpatient (IN) ==
--- NOTE | 2025-04-15 09:23 | Emergency Department Note ---
Impression & Plan Lymphedema, Cellulitis ED Provider Note NAME: KAMERON ZAPATA AGE: 49 SEX: M : 1975 ARRIVES VIA: Walk-In INFORMANT: The patient himself. ED PROVIDER(S): Shelley Hendrickson PA-C, [Annalisa Gunter MD] CHIEF COMPLAINT: Cellulitis HISTORY OF PRESENTING ILLNESS: The patient is a 49-year-old male with a H cellulitis and chronic lymphedema who presents to the emergency department due to concern for cellulitis of the left leg. He reports the left leg is significantly more swollen than the right. He reports having lymphedema for approximately 15 years. He has had fevers, chills, body aches, and redness to the left leg. Symptoms began yesterday. He has been taking Tylenol at home for pain management. He denies upper respiratory symptoms, chest pain, shortness of breath, nausea or vomiting, abdominal pain, urinary symptoms. Denies any injury or trauma to the leg. Has had a history of DVT/PE and is currently on blood thinners. He has not missed any doses. REVIEW OF SYSTEMS: See HPI for pertinent positives and pertinent negatives. ALLERGIES: NKDA MEDICATIONS: See below PAST MEDICAL HISTORY: See below PHYSICAL EXAM: VITALS: Vitals are noted on the nurses note and reviewed by myself. Vital signs stable. GENERAL: 49-year-old male, in no acute distress, nondiaphoretic, well-developed well-nourished. HEENT: Normocephalic. PERRLA. EOMI. Nares patent. Mucous membranes moist. Neck is supple without nuchal rigidity. HEART: Regular rate and rhythm without murmurs gallops or rubs. LUNGS: CTA BL without wheezes, rales or rhonchi. No retractions or accessory muscle use. ABDOMEN: Soft, nontender, without masses or organomegaly. Morelos sign negative. No guarding or rebound tenderness. MUSCULOSKELETAL: Skin is warm and dry. No rash. Chronic lymphedema bilaterally left > right. The skin on the lower thigh is erythematous and warm to touch. Mildly tender. No erythema on right leg. NEURO: Patient was alert and oriented to person place and time. No focal neurological deficits. DIFFERENTIAL DIAGNOSIS: Cellulitis, erysipelas, osteomyelitis, abscess, traumatic wound, pressure ulcer, osteomyelitis, among others. ED COURSE AND MEDICAL DECISION MAKING: MEDICATIONS GIVEN: The patient was offered Tylenol and politely declined requesting something stronger, he was given morphine 2 mg IV, Zofran 4 mg IV, Rocephin 2 g IV, vancomycin 2500 mg IV INTERPRETATION OF LABS: I interpreted the labs with full lab results as below in the lab section of this note. Pertinent lab results discussed in the MDM section below. INTERPRETATION OF IMAGING: No images were obtained. CONSULTATIONS: On-call hospitalist for admission. MDM SUMMARY: I evaluated the 49-year-old male who presents to the emergency department due to concern for cellulitis of the left leg. Patient has a history of chronic lymphedema. See HPI and PE above. Patient's vitals are stable. Labs obtained showing a no leukocytosis. Mild chronic anemia. Mild hyponatremia 135. No other electrolyte abnormality. No YI. Lactate 1.5. CRP elevated 15.55. Procalcitonin elevated 1.82. COVID/flu/RSV negative. Offered to order ultrasound of the left lower extremity to rule out DVT and patient declines. He is on blood thinners due to history of DVT/PE and has taken all of his doses appropriately. The leg is red and warm. Due to the patient's symptoms progressing over the last 24-48 hours and history of chronic lymphedema I do believe he would benefit from admission for IV antibiotics. Blood cultures were obtained before he was given Rocephin and vancomycin. I consulted with the hospitalist who was agreeable to evaluating the patient for admission. Patient is also agreeable to the outlined treatment plan and all questions answered. The patient was admitted in stable condition. DIAGNOSIS: Lymphedema, cellulitis The chart was completed utilizing [employer] Speech voice recognition software. Grammatical errors, random word insertions, pronoun errors, and incomplete sentences are an occasional consequence of this system due to software limitations, ambient noise, and hardware issues. Any formal questions or concerns about the content, text, or information contained within the body of this dictation should be directly addressed to the provider for clarification. TREATMENT PLAN/DISCHARGE INSTRUCTIONS: The patient was admitted to medicine. See that note for further management. Past Med/Surg History Problem List (Updated 04/16/25 @ 13:13 by Shelley Hendrickson PA-C) Cellulitis (Acute) Lymphedema (Acute) Cellulitis of left leg History of DVT of lower extremity Lymphedema due to chronic inflammation Erysipelas of left lower extremity Medical History Hypokalemia Anemia Cellulitis Family History Father No problems noted. Mother , @ 59 years of age from COVID-associated pneumonia. No problems noted. 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 Feels Safe at Home: Yes Safety Concerns: Feels Safe At This Time Assistive Devices: None Allergies Allergies Allergy/AdvReac Type Severity Reaction Status Date / Time No Known Allergies Allergy Verified 03/09/25 15:52 Home Meds Home Medications Medication Instructions Recorded Confirmed gabapentin 600 mg tablet 600 mg PO TID 03/09/25 03/09/25 hydrocodone 10 mg-acetaminophen 1 tab PO 5XD PRN Severe Pain 03/09/25 03/09/25 325 mg tablet (Scale Score 7-10) rivaroxaban 10 mg tablet (Xarelto) 10 mg PO QPM 03/09/25 03/09/25 Results & Data (ED) Vital Signs Vital Signs - 24 hr 04/15/25 09:11 Temperature 36.4 C L Temperature Source Oral Pulse Rate 83 Respiratory Rate 18 Respiratory Effort / Characteristics Non-Labored Spontaneous Respiratory Depth Normal Respiratory Pattern Regular Blood Pressure 96/64 L Blood Pressure Mean 74 Pulse Oximetry 98 Oxygen Delivery Method Room Air Sepsis Recent Fever Within 48 Hours Yes Sepsis New/Unexplained Change in Mental Status No Sepsis Action Taken by Nursing No Action Required Laboratory Data 04/16/25 09:00 04/16/25 09:00 Lab Results 04/15/25 04/15/2504/15/25 Range/Units 09:52 10:05 10:33 WBC Cancelled 9.28 RBC Cancelled 4.66 L Hgb Cancelled 11.4 L Hct Cancelled 37.4 L MCV Cancelled 80.3 MCH Cancelled 24.5 L MCHC Cancelled 30.5 L RDW Std Deviation Cancelled 47.3 H RDW Coeff of Rajiv Cancelled 16.4 H Plt Count Cancelled 157 MPV Cancelled 11.8 Immature Gran % (Auto) Cancelled 0.3 Neut % (Auto) Cancelled 70.0 Lymph % (Auto) Cancelled 14.5 Roosevelt % (Auto) Cancelled 11.4 Eos % (Auto) Cancelled 3.4 Baso % (Auto) Cancelled 0.4 Neut # (Auto) Cancelled 6.48 Lymph # (Auto) Cancelled 1.35 Roosevelt # (Auto) Cancelled 1.06 H Eos # (Auto) Cancelled 0.32 Baso # (Auto) Cancelled 0.04 Immature Gran # (Auto) Cancelled 0.03 Absolute Nucleated RBC Cancelled Nucleated RBC % (auto) Cancelled Neutrophils % (Manual) Cancelled Band Neutrophils % Cancelled Lymphocytes % (Manual) Cancelled Prolymphocyte % Cancelled Reactive Lymphs % (Man) Cancelled Monocytes % (Manual) Cancelled Eosinophils % (Manual) Cancelled Basophils % (Manual) Cancelled Metamyelocytes % (Man) Cancelled Myelocytes % (Man) Cancelled Promyelocytes % (Man) Cancelled Blast Cells % (Manual) Cancelled Plasma Cell % (Manual) Cancelled Other Cells % Cancelled Nucleated RBC % Cancelled Neutrophils # (Manual) Cancelled Band Neutrophils # Cancelled Total Absolute Neuts Cancelled Lymphocytes # (Manual) Cancelled Prolymphocyte # Cancelled Reactive Lymphs # Cancelled Total Abs Lymphocytes Cancelled Monocytes # (Manual) Cancelled Eosinophils # (Manual) Cancelled Basophils # (Manual) Cancelled Metamyelocytes # (Man) Cancelled Myelocytes # (Manual) Cancelled Promyelocytes # (Man) Cancelled Blast Cells # (Man) Cancelled Plasma Cell # (Manual) Cancelled Other Cells # Cancelled Nucleated RBCs # (Man) Cancelled Hypersegmented Neuts Cancelled Hyposegmented Neuts Cancelled Hypogranular Neuts Cancelled Large Granular Lymphs Cancelled # Lrg Granular Lymphs Cancelled Hairy Cells Cancelled Smudge Cells Cancelled Toxic Granulation Cancelled Toxic Vacuolation Cancelled Dohle Bodies Cancelled Linda Rods Cancelled Platelet Estimate Cancelled Hypogranular Platelets Cancelled Giant Platelets Cancelled Platelet Satelliting Cancelled RBC Morphology Cancelled Polychromasia Cancelled Hypochromasia Cancelled Poikilocytosis Cancelled Basophilic Stippling Cancelled Anisocytosis Cancelled Microcytosis Cancelled Macrocytosis Cancelled Spherocytes Cancelled Pappenheimer Bodies Cancelled Sickle Cells Cancelled Target Cells Cancelled Tear Drop Cells Cancelled Ovalocytes Cancelled Stomatocytes Cancelled Lang-[place] Bodies Cancelled Echinocytes Cancelled Acanthocytes (Spur) Cancelled Rouleaux Cancelled RBC Agglutinates Cancelled Schistocytes Cancelled ESR Cancelled 50 H Sezary Cell Cancelled Sodium 135 L (136-145) mmol/L Potassium 3.7 (3.5-5.1) mmol/L Chloride 107 (98-107) mmol/L Carbon Dioxide 22 (21-32) mmol/L Anion Gap 6 (3-11) BUN 16 (6-23) mg/dl Creatinine 0.82 (0.6-1.4) mg/dl Est Cr Clr Drug Dosing 146.9 ml/min eGFR 109.03 BUN/Creatinine Ratio 19.5 (10-20) Glucose 75 (70-99(Fasting)) mg/dl Lactate 1.5 (0.4-2.0) mmol/L Calcium 8.8 (8.6-10.3) mg/dl Total Bilirubin 0.5 (0.2-1.0) mg/dl AST 32 (13-39) U/L ALT 15 (7-52) U/L Alkaline Phosphatase 102 (34-104) U/L C-Reactive Protein 15.55 H (0-0.5) mg/dl Total Protein 7.2 (6.0-8.3) gm/dl Albumin 3.7 (3.4-5.0) gm/dl Globulin 3.5 (2.5-4.0) gm/dl Albumin/Globulin Ratio 1.1 (0.9-2) Procalcitonin 1.82 H (0-0.5) ng/ml SARS-CoV-2 (PCR) NEGATIVE (Negative) Influenza Type A (PCR) Negative (Neg) Influenza Type B (PCR) Negative (Neg) RSV (RT-PCR) Negative (Neg) Blood Parasites ID Cancelled Administered Medications Hydrocodone Bitart/Acetaminophen (Hydrocodone/Acetaminophen 10/325 Tab) 1 tab PO Q4H PRN PRN Reason: Severe Pain (Scale Score 7-10) Stop: 04/29/25 11:53 Last Admin: 04/16/25 12:01 Dose: 1 tab Documented By: Admin: 04/16/25 07:36 Dose: 1 tab Documented By: Admin: 04/16/25 03:11 Dose: 1 tab Documented By: Admin: 04/15/25 23:08 Dose: 1 tab Documented By: Admin: 04/15/25 17:51 Dose: 1 tab Documented By: OS Gabapentin (Gabapentin 600 Mg Tab) 600 mg PO TID [facility] Stop: 05/15/25 13:59 Last Admin: 04/16/25 07:34 Dose: 600 mg Documented By: Admin: 04/15/25 21:42 Dose: 600 mg Documented By: Admin: 04/15/25 15:46 Dose: 600 mg Documented By: OS Hydromorphone HCl (Hydromorphone Inj 1 Mg/Ml Syringe) 1 mg IV Q3H PRN PRN Reason: Pain Scale 6,7,8,9,10 Stop: 04/29/25 15:28 Last Admin: 04/16/25 10:43 Dose: 1 mg Documented By: ELIEL Vancomycin HCl 1,500 mg/ (Sodium Chloride) 530 mls @ 200 mls/hr IV Q12H [facility] Stop: 04/23/25 00:00 Last Admin: 04/16/25 12:02 Dose: 200 mls/hr Documented By: Infusion: 04/16/25 03:10 Dose: Infused Documented By: Admin: 04/16/25 00:31 Dose: 200 mls/hr Documented By: VERONICA Rivaroxaban (Rivaroxaban 10 Mg Tablet) 10 mg PO QPM [facility] Stop: 05/15/25 20:59 Last Admin: 04/15/25 21:42 Dose: 10 mg Documented By: RES Discontinued Medications Hydromorphone HCl (Hydromorphone Inj 1 Mg/Ml Syringe) 1 mg IV Q4H PRN PRN Reason: Pain Scale 6,7,8,9,10 Stop: 04/29/25 15:28 Last Admin: 04/16/25 06:17 Dose: 1 mg Documented By: Admin: 04/16/25 01:49 Dose: 1 mg Documented By: Admin: 04/15/25 21:41 Dose: 1 mg Documented By: Admin: 04/15/25 15:45 Dose: 1 mg Documented By: OS Acetaminophen (Ofirmev) 1,000 mg in 100 mls @ 400 mls/hr IV NOW STA Stop: 04/15/25 09:52 Last Admin: 04/15/25 10:49 Dose: Not Given Documented By: MMF Ceftriaxone Sodium (Rocephin) 2,000 mg in 50 mls @ 100 mls/hr IV NOW STA Stop: 04/15/25 12:01 Last Infusion: 04/15/25 13:50 Dose: Infused Documented By: Admin: 04/15/25 13:12 Dose: 100 mls/hr Documented By: MMF Vancomycin HCl 2,500 mg/ (Sodium Chloride) 550 mls @ 200 mls/hr IV NOW ONE Stop: 04/15/25 14:16 Last Infusion: 04/15/25 17:01 Dose: Infused Documented By: Admin: 04/15/25 14:15 Dose: 200 mls/hr Documented By: OS Morphine Sulfate (Morphine Sulfate 2 Mg/Ml Carp) 2 mg IV NOW STA Stop: 04/15/25 11:13 Last Admin: 04/15/25 11:22 Dose: 2 mg Documented By: MMF Ondansetron HCl (Ondansetron Inj 2 Mg/Ml 2 Ml Vial) 4 mg IV NOW STA Stop: 04/15/25 11:13 Last Admin: 04/15/25 11:22 Dose: 4 mg Documented By: MMF Discharge Plan Visit Data Chief Complaint: Illness Stated Complaint: CELLULITIS ED Provider: Annalisa Gunter ED Midlevel Provider: Shelley Hendrickson Discharge Problem: Lymphedema, Cellulitis Patient Disposition: Admitted As Inpatient Condition: Good Discharge Instructions Interventions: ED Discharge Assessment Last Done: 04/15/25 13:55 Discharge Problem: Cellulitis Qualifiers: Site of cellulitis: extremity Site of cellulitis of extremity: lower extremity Laterality: left Qualified Code(s): L03.116 - Cellulitis of left lower limb
[2025-04-15 10:44] LABS: Alanine Aminotransferase 15.0 U/L (7-52); Albumin Globulin Ratio 1.1 (0.9-2); Albumin Level 3.7 gm/dl (3.4-5.0); Alkaline Phosphatase 102.0 U/L (34-104); Anion Gap 6.0 (3-11); Bilirubin,Total 0.5 mg/dl (0.2-1.0); Blood Urea Nitrogen 16.0 mg/dl (6-23); Calcium 8.8 mg/dl (8.6-10.3); Carbon Dioxide 22.0 mmol/L (21-32); Chloride 107.0 mmol/L (98-107); Creatinine Clr Calc Pharmacy 146.9 ml/min; Globulin 3.5 gm/dl (2.5-4.0); Glucose 75.0 mg/dl (70-99(Fasting)); Potassium 3.7 mmol/L (3.5-5.1); Sodium 135.0 mmol/L (136-145); Total Protein 7.2 gm/dl (6.0-8.3)
[2025-04-15] MEDS: ACETAMINOPHEN 1,000 MG/100 ML VIAL IV STA (10:49)
[2025-04-15 11:05] LABS: Hematocrit (blood only) 37.4 % (42.0-52.0); Hemoglobin 11.4 g/dL (14.0-18.0); Immature Granulocytes # (auto) 0.03 K/uL (0.01-0.20); Immature Granulocytes % (auto) 0.3 %; Mean Corpuscular Hemoglobin 24.5 pg (25.0-34.0); Mean Corpuscular Volume 80.3 fL (80.0-100.0); Platelet Count 157 K/uL (130-400); RDW Standard Deviation 47.3 fL (36.4-46.3); Red Blood Count 4.66 M/uL (4.70-6.10); White Blood Count 9.28 K/ul (4.8-10.8)
[2025-04-15 11:14] LABS: Influenza A virus by PCR Negative (Neg); Influenza B virus by PCR Negative (Neg); SARS CoV2 RNA(COVID-19) Ceph NEGATIVE (Negative)
[2025-04-15] MEDS: MoRPHine SULFATE 2 MG/ML CARP IV STA (11:22)
[2025-04-15] MEDS: ONDANSETRON INJ 2 MG/ML 2 ML VIAL IV STA (11:22)
[2025-04-15] MEDS ORDERED: VANCOMYCIN CONSULT ACTIVE PRN ×2 (11:32→12:00)
[2025-04-15] MEDS ORDERED: ONDANSETRON INJ 2 MG/ML 2 ML VIAL IV PRN (11:58)
[2025-04-15] MEDS ORDERED: ACETAMINOPHEN 325 MG TAB PO PRN (11:58)
--- NOTE | 2025-04-15 12:42 | History & Physical Report ---
Date of Service April 15, 2025 Assessment & Plan (1) Erysipelas of left lower extremity: Plan: -rocephin/vacomycin -ID consulted (2) Lymphedema due to chronic inflammation: Plan: -long standing history with recurrent cellulitis (3) History of DVT of lower extremity: Plan: -on xarelto History of Present Illness Chief Complaint: Left leg swelling Primary Care Provider: Zaki Faria PA-C Pt is a 49 y/o male with PMH of chronic LE lymphedema with recurrent cellulitis, LE DVT on xarelto, who presents with increased swelling and redness of his left leg. Pt denies any fever or chills. In the ER his WBC was WNL. Pt refusing US of his lower ext. He states he has been compliant with his xarelto. He was started on rocephin/vancomycin in the ER and will be admitted for further treatment of his lower ext cellulitis. Allergies Allergy/AdvReac Type Severity Reaction Status Date / Time No Known Allergies Allergy Verified 03/09/25 15:52 Home Medications Medication Instructions Recorded Confirmed Type gabapentin 600 mg tablet 600 mg PO TID 03/09/25 03/09/25 History hydrocodone 10 mg-acetaminophen 1 tab PO 5XD PRN Severe Pain 03/09/25 03/09/25 History 325 mg tablet (Scale Score 7-10) rivaroxaban 10 mg tablet (Xarelto) 10 mg PO QPM 03/09/25 03/09/25 History Past Med/Surg History Problem List (Updated 04/15/25 @ 15:06 by Josephine David MD) Cellulitis of left leg History of DVT of lower extremity Lymphedema due to chronic inflammation Erysipelas of left lower extremity Medical History (Updated 04/15/25 @ 15:06 by Josephine Dvaid MD) Hypokalemia Anemia Cellulitis Family History Father No problems noted. Mother , @ 59 years of age from COVID-associated pneumonia. No problems noted. 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 Feels Safe at Home: Yes Assistive Devices: None Review of Systems Review of Systems: CONST: Negative for fever, body aches and chills. HENT: Negative for neck pain/stiffness, headache, congestion, sore throat, swelling. EYES: Negative for discharge/pain or vision changes. RESP: Negative for cough/hemoptysis and shortness of breath. CV: Negative chest pain, difficulty breathing, palpitations. ABD: Negative pain, nausea, vomiting. : Negative increase frequency, dysuria, blood in urine or stool. MUSC: Negative for muscle aches, edema. SKIN: Negative rash, lesions/sores. Left leg erythema NEURO: Negative headache, dizziness, weakness. Physical Exam Physical Exam: GENERAL APPEARANCE NAD, activity normal for age, well developed/ well nourished, no cyanosis, pallor, or diaphoresis. EYES lids/conjunctiva normal. EARS/NOSE/THROAT Mucous membranes moist, nares normal, lips/teeth normal uvula midline without oral pharyngeal erythema, exudate or swelling TMs normal bilaterally. No lymphangitis/lymphedema. HEAD/NECK normocephalic atraumatic, no facial trauma, neck is supple. RESPIRATORY respiratory effort normal, speaks in full sentences, no tripod position, no accessory muscle use. Lungs clear to auscultation without rhonchi, wheezes, rales CARDIAC Regular rate and rhythm, no edema. ABDOMINAL Soft, ND/NT. No evidence of fluid wave. No pulsatile masses on exam, rebound tenderness, Morelos sign or pain over Mcburney's point. MUSCLES/EXTREMITIES SKIN Warm, pink and dry. No rashes, dermatoses, petechiae or lesions. NEUROLOGICAL Speech is clear and appropriate. Normal level of consciousness. Gait and coordination are normal. 5/5 strength in all extremities. PSYCH Normal mood and affect. Judgement/competence is appropriate Results & Data Results & Data Vital Signs (Past 12 Hours) Vital Signs Temp Pulse Pulse Resp BP BP Pulse Ox 04/15/25 12:00 61 16 101/59 L 99 04/15/25 11:50 70 04/15/25 11:21 63 16 101/54 L 100 04/15/25 09:11 36.4 C L 83 18 96/64 L 98 O2 Del Method 04/15/25 12:00 Room Air 04/15/25 11:50 04/15/25 11:21 Room Air 04/15/25 09:11 Room Air PG Care Time/CCT Total # of Minutes Spent Total Time Spent with Patient: Total time spent is greater than 50% in coordination of care (as documented) at patient's floor/unit and/or counseling patient: Coding Level of Care Code 62664 INT INP/OBS CARE 2MIN Diagnoses Erysipelas of left lower extremity A46 Lymphedema due to chronic inflammation I89.0 History of DVT of lower extremity Z86.718
[2025-04-15] MEDS: cefTRIAXone SODIUM 2,000 MG/50 ML BAG IV STA (13:12)
[2025-04-15] MEDS: VANCOMYCIN HCL 2,500 MG in SODIUM CHLORIDE 0.9% 500 ML IV ONE (14:15)
--- NOTE | 2025-04-15 15:03 | Infectious Disease Consult ---
Date of Consultation April 15, 2025 Assessment & Plan (1) Cellulitis of left leg: (2) Lymphedema due to chronic inflammation: Plan 49yo M with h/o chronic LE lymphedema with recurrent cellulitis, LE DVT on Xarelto, morbid obesity s/p gastric bypass 10-15yrs ago, admission 01/2025 with LLE cellulitis and dcd on doxy/cefadroxil who presented on 04/15 with increasing swelling and redness of left leg x 1 day. Afebrile, vss. WBC and Cr wnl. ESR 50, CRP 15.55. He was started on vancomycin and CTX for cellulitis. ID consulted 04/15. Will order MRSA swab though he was MRSA positive in January. Continue empiric abx and follow for improvement. May consider antibiotic prophylaxis given frequent episodes of cellulitis, though this in itself may also predispose him to MDROs and he has said he also gets breakthrough cellulitis on antibiotics. Therefore utility of this may be low. # LLE cellulitis # Chronic lymphedema # Recurrent cellulitis - I ordered MRSA swab - continue vancomycin pharmacy dosed protocol - continue CTX 2g IV daily Will continue to follow. Josephine David MD [facility], Division of Infectious Diseases [facility]: [phone] Consultation Information Consultation was provided via telemedicine using two-way real-time interactive telecommunication between the patient and the telemedicine provider. For the duration of the visit, the provider was performing the assessment from a different facility than the patient. This includesuse of bluetooth stethoscope forauscultationperformed by the telepresenter that the telemedicine provider can hear if described in the physical exam. Superintendent Tests contact information: Please call [facility] Call Center [phone]. (Phone Number For Physician Use Only) After establishing a telemedicine visit, patient was: Patient was verified with two unique identifiers, Patient/authorized rep acknowledged consent and understanding and Gave permission to continue telehealth session Time Spent with Patient: Initial => 75 min History of Present Illness Reason for Consultation: cellulitis Attending Physician: Alonso Gomez MD History of Present Illness 49yo M with h/o chronic LE lymphedema with recurrent cellulitis, LE DVT on Xarelto, morbid obesity s/p gastric bypass 10-15yrs ago, admission 01/2025 with LLE cellulitis and dcd on doxy/cefadroxil who presented on 04/15 with increasing swelling and redness of left leg. Afebrile, vss. WBC and Cr wnl. ESR 50, CRP 15.55. He was started on vancomycin and CTX for cellulitis. ID consulted 04/15. On evaluation, he says he has had recurrent episodes of cellulitis requiring admissions. Gets them once a month with fevers, chills, extra swelling/redness of leg. This recurred yesterday which lead him to come to the ER. He says hes had issues with lymphedema for 13 years and has required admissions for treatment. Does say that he still gets recurrences even on antibiotics. No other complaints. Allergies Allergy/AdvReac Type Severity Reaction Status Date / Time No Known Allergies Allergy Verified 03/09/25 15:52 Home Medications Medication Instructions Recorded Confirmed Type gabapentin 600 mg tablet 600 mg PO TID 03/09/25 03/09/25 History hydrocodone 10 mg-acetaminophen 1 tab PO 5XD PRN Severe Pain 03/09/25 03/09/25 History 325 mg tablet (Scale Score 7-10) rivaroxaban 10 mg tablet (Xarelto) 10 mg PO QPM 03/09/25 03/09/25 History Patient History Medical History (Updated 04/15/25 @ 15:06 by Josephine David MD) Hypokalemia Anemia Cellulitis Family History Father No problems noted. Mother , @ 59 years of age from COVID-associated pneumonia. No problems noted. 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 Feels Safe at Home: Yes Assistive Devices: None Review of System 10-point review of systems reviewed and are negative except for as above. Physical Exam Physical Exam: General: Awake, alert, no acute distress HEENT: NC/AT, EOMI, mmm Neck: supple Lungs: respirations non-labored Heart: nl peripheral perfusion Abdomen: soft, NT/ND Ext: significant lymphedema in left leg, light erythema over lower leg that is tender Neuro: moving all extremities Results & Data Vital Signs (Past 12 Hours) Vital Signs Temp Pulse Pulse Resp BP BP Pulse Ox 04/15/25 13:55 54 L 16 106/64 100 04/15/25 13:00 46 L 16 121/69 98 04/15/25 12:00 61 16 101/59 L 99 04/15/25 11:50 70 04/15/25 11:21 63 16 101/54 L 100 04/15/25 09:11 36.4 C L 83 18 96/64 L 98 O2 Del Method 04/15/25 13:55 Room Air 04/15/25 13:00 Room Air 04/15/25 12:00 Room Air 04/15/25 11:50 04/15/25 11:21 Room Air 04/15/25 09:11 Room Air Laboratory Results Labs reviewed. Diagnostic Findings Imaging reviewed.
--- NOTE | 2025-04-15 15:16 | Pharmacy Report ---
Pharmacy PK ABX Note - Date of Service April 15, 2025 - Assessment and Plan Assessment 49 year old M receiving vancomycin and ceftriaxone for treatment of skin and soft tissue infection. Pertinent microbiologic data includes: blood cultures x2 pending. * Increased swelling and redness of left leg on presentation * Previous admission for cellulitis in 01/2025 - cefadroxil and doxycycline * Patient received vancomycin during this admission * He was initiated on 1750mg Q12H and then decreased substantially to 1000mg Q12H the next day * Weight 124kg and BMI 39.3 - patient likely accumulated vancomycin * WBC 9.28 * SCr 0.81 (estimated CrCl 146.9 mL/min) - baseline SCr ~0.7-0.8 Day #1 of antimicrobial therapy. Plan Vancomycin * Loading dose: 2500 mg IV x 1 (given 04/15 @1400) * Maintenance dose: 1500 mg IV every 12 hours * Slightly lower initial dose than last time due to accumulation but will likely need to further reduce as more doses are given * Regimen is predicted to achieve target AUC/GONSALO of 400-600 mg/L.hr * Random level ordered for: 04/16/25 @0900 * Early level after only second dose due to history of accumulation during last admission * Will monitor and decrease dose as indicated by levels Pharmacy will continue to follow and will adjust dose/frequency as necessary. Thank you. Pharmacy has transitioned to AUC monitoring for vancomycin. AUC/GONSALO is the preferred PK/PD target and is associated with decreased risk of nephrotoxicity compared to traditional trough targets.
[2025-04-15] MEDS: HYDROmorphone INJ 1 MG/ML SYRINGE IV PRN (15:45)
[2025-04-15] MEDS: GABAPENTIN 600 MG TAB PO SCH (15:46)
[2025-04-15] MEDS ORDERED: VANCOMYCIN HCL 1,750 MG in SODIUM CHLORIDE 0.9% 500 ML IV SCH (21:00)
[2025-04-15] MEDS: RIVAROXABAN 10 MG TABLET PO SCH (21:42)
[2025-04-16] MEDS ORDERED: VANCOMYCIN HCL / NSS 1,000 MG/270 ML BAG IV SCH
[2025-04-16] MEDS: VANCOMYCIN HCL 1,500 MG in SODIUM CHLORIDE 0.9% 500 ML IV SCH (00:31)
--- NOTE | 2025-04-16 09:34 | Hospitalist Progress Note ---
Date of Service April 16, 2025 Assessment & Plan (1) Erysipelas of left lower extremity: Plan: -rocephin/vacomycin -ID consult appreciated (2) Lymphedema due to chronic inflammation: Plan: -long standing history with recurrent cellulitis (3) History of DVT of lower extremity: Plan: -on xarelto Admission and Anticipated Discharge Date Admission Date: April 15, 2025 Subjective No events overnight. Pt resting in bed. Review of Systems Review of Systems: CONST: Negative for fever, body aches and chills. HENT: Negative for neck pain/stiffness, headache, congestion, sore throat, swelling. EYES: Negative for discharge/pain or vision changes. RESP: Negative for cough/hemoptysis and shortness of breath. CV: Negative chest pain, difficulty breathing, palpitations. ABD: Negative pain, nausea, vomiting. : Negative increase frequency, dysuria, blood in urine or stool. MUSC: Negative for muscle aches, edema. SKIN: Negative rash, lesions/sores. Left leg erythema NEURO: Negative headache, dizziness, weakness. Physical Exam Physical Exam: GENERAL APPEARANCE NAD, activity normal for age, well developed/ well nourished, no cyanosis, pallor, or diaphoresis. EYES lids/conjunctiva normal. EARS/NOSE/THROAT Mucous membranes moist, nares normal, lips/teeth normal uvula midline without oral pharyngeal erythema, exudate or swelling TMs normal bilaterally. No lymphangitis/lymphedema. HEAD/NECK normocephalic atraumatic, no facial trauma, neck is supple. RESPIRATORY respiratory effort normal, speaks in full sentences, no tripod position, no accessory muscle use. Lungs clear to auscultation without rhonchi, wheezes, rales CARDIAC Regular rate and rhythm, no edema. ABDOMINAL Soft, ND/NT. No evidence of fluid wave. No pulsatile masses on exam, rebound tenderness, Morelos sign or pain over Mcburney's point. MUSCLES/EXTREMITIES SKIN Warm, pink and dry. No rashes, dermatoses, petechiae or lesions. NEUROLOGICAL Speech is clear and appropriate. Normal level of consciousness. Gait and coordination are normal. 5/5 strength in all extremities. PSYCH Normal mood and affect. Judgement/competence is appropriate Results & Data Results & Data Vital Signs (Past 12 Hours) Vital Signs Temp Pulse Resp BP Pulse Ox O2 Del Method 04/16/25 07:02 36.6 C 72 16 103/63 100 Room Air PG Care Time/CCT Total # of Minutes Spent Total Time Spent with Patient: Total time spent is greater than 50% in coordination of care (as documented) at patient's floor/unit and/or counseling patient: Coding Level of Care Code 22969 SUB INP/OBS CARE 2/35MIN Diagnoses Erysipelas of left lower extremity A46 Lymphedema due to chronic inflammation I89.0 History of DVT of lower extremity Z86.718
[2025-04-16 10:00] LABS: Hematocrit (blood only) 32.0 % (42.0-52.0); Hemoglobin 9.9 g/dL (14.0-18.0); Mean Corpuscular Hemoglobin 24.3 pg (25.0-34.0); Mean Corpuscular Volume 78.4 fL (80.0-100.0); Platelet Count 155 K/uL (130-400); RDW Standard Deviation 48.7 fL (36.4-46.3); Red Blood Count 4.08 M/uL (4.70-6.10); White Blood Count 5.72 K/ul (4.8-10.8)
[2025-04-16 10:14] LABS: Anion Gap 5.0 (3-11); Blood Urea Nitrogen 13.0 mg/dl (6-23); Calcium 8.7 mg/dl (8.6-10.3); Carbon Dioxide 24.0 mmol/L (21-32); Chloride 107.0 mmol/L (98-107); Creatinine Clr Calc Pharmacy 163.1 ml/min; Glucose 106.0 mg/dl (70-99(Fasting)); Potassium 3.8 mmol/L (3.5-5.1); Sodium 136.0 mmol/L (136-145)
--- NOTE | 2025-04-16 10:25 | Infectious Disease Progress Nt ---
Date of Service April 16, 2025 Assessment & Plan (1) Cellulitis of left leg: (2) Lymphedema due to chronic inflammation: Plan 49yo M with h/o chronic LE lymphedema with recurrent cellulitis, LE DVT on Xarelto, morbid obesity s/p gastric bypass 10-15yrs ago, admission 01/2025 with LLE cellulitis and dcd on doxy/cefadroxil who presented on 04/15 with increasing swelling and redness of left leg x 1 day. Afebrile, vss. WBC and Cr wnl. ESR 50, CRP 15.55. He was started on vancomycin and CTX for cellulitis. ID consulted 04/15. MRSA nares positive. Leg improving today. Pain improving as well. Plan to complete 5-7 days of antibiotics. Will continue coverage for MRSA however I think he should also get strep coverage. Can use doxycycline for MRSA and add a cephalosporin (ie cephalexin) or amoxicillin. Subsequent antibiotic prophylaxis may be considered given frequent episodes of cellulitis, though this may also predispose him to MDROs and he has said he also gets breakthrough cellulitis on antibiotics. Therefore utility of this may be low. # LLE cellulitis # Chronic lymphedema # Recurrent cellulitis - continue vancomycin pharmacy dosed protocol - continue CTX 2g IV daily - if continuing to improve and ready for discharge, can change antibiotics to doxycycline 100mg PO bid + beta lactam (e.g., cephalexin 500mg PO qid, or cefadroxil 500mg PO bid, or augmentin 875mg PO bid) - duration 5-7 days starting 04/15 Will discontinue active follow up at this time. Please do not hesitate to reconsult the Infectious Diseases service as needed. Josephine David MD [facility], Division of Infectious Diseases [facility]: [phone] Admission and Anticipated Discharge Date Admission Date: April 15, 2025 Subjective Subsequent visit was provided via telemedicine using two-way real-time interactive telecommunication between the patient and the telemedicine provider. For the duration of the visit, the provider was performing the assessment from a different facility than the patient. This includesuse of bluetooth stethoscope forauscultationperformed by the telepresenter that the telemedicine provider can hear if described in the physical exam. [employer] contact information: Please call [facility] Call Center . (Phone Number For Physician Use Only) After establishing a telemedicine visit, patient was: Patient was verified with two unique identifiers, Patient/authorized rep acknowledged consent and understanding and Gave permission to continue telehealth session Time Spent with Patient: Subsequent => 35 min Patient feeling better today. Denies having any pain, vomiting, diarrhea. Physical Exam Physical Exam: General: Awake, alert, no acute distress HEENT: NC/AT, EOMI, mmm Neck: supple Lungs: respirations non-labored Heart: nl peripheral perfusion Ext: lymphedema in left leg, light erythema over lower leg improving Neuro: moving all extremities Results & Data Vital Signs (Past 12 Hours) Vital Signs Temp Pulse Resp BP Pulse Ox O2 Del Method 04/16/25 07:02 36.6 C 72 16 103/63 100 Room Air Laboratory Results Labs reviewed.
[2025-04-16] MEDS: HYDROmorphone INJ 1 MG/ML SYRINGE IV PRN (10:43)
[2025-04-16] MEDS: cefTRIAXone SODIUM 2,000 MG/50 ML BAG IV SCH (14:19)
[2025-04-16 15:16] VITALS: O2SAT 96
[2025-04-17 07:21] VITALS: BP 120/64; PULSE 74; RESP 20; TEMP 98.4
--- NOTE | 2025-04-17 09:02 | Discharge Summary ---
Discharge Summary Date of Service April 17, 2025 Principal Dx & Hospital Course #1 = Principal Diagnosis (1) Erysipelas of left lower extremity: -rocephin/vacomycin -ID consult appreciated -d/c home on doxycycline and augmentin for 7 days (2) Lymphedema due to chronic inflammation: -long standing history with recurrent cellulitis (3) History of DVT of lower extremity: -on xarelto Admission HPI Per Admitting Provider Pt is a 49 y/o male with PMH of chronic LE lymphedema with recurrent cellulitis, LE DVT on xarelto, who presents with increased swelling and redness of his left leg. Pt denies any fever or chills. In the ER his WBC was WNL. Pt refusing US of his lower ext. He states he has been compliant with his xarelto. He was started on rocephin/vancomycin in the ER and will be admitted for further treatment of his lower ext cellulitis. Discharge Exam GENERAL APPEARANCE NAD, activity normal for age, well developed/ well nourished, no cyanosis, pallor, or diaphoresis. EYES lids/conjunctiva normal. EARS/NOSE/THROAT Mucous membranes moist, nares normal, lips/teeth normal uvula midline without oral pharyngeal erythema, exudate or swelling TMs normal bilaterally. No lymphangitis/lymphedema. HEAD/NECK normocephalic atraumatic, no facial trauma, neck is supple. RESPIRATORY respiratory effort normal, speaks in full sentences, no tripod position, no accessory muscle use. Lungs clear to auscultation without rhonchi, wheezes, rales CARDIAC Regular rate and rhythm, no edema. ABDOMINAL Soft, ND/NT. No evidence of fluid wave. No pulsatile masses on exam, rebound tenderness, Morelos sign or pain over Mcburney's point. MUSCLES/EXTREMITIES SKIN Warm, pink and dry. No rashes, dermatoses, petechiae or lesions. NEUROLOGICAL Speech is clear and appropriate. Normal level of consciousness. Gait and coordination are normal. 5/5 strength in all extremities. PSYCH Normal mood and affect. Judgement/competence is appropriate Discharge Plan Discharge Items Patient Disposition: Home - Self-Care Reason For Visit: CELLULITIS Discharge Diagnosis: cellulitis Condition on Discharge: Good Activity: Resume your previous activity Non-emergency contact: Primary Care Provider Call non-emergency contact if: you have any medication questions Follow-up/Referrals: Zaki Faria PA-C [Primary Care Provider] - Diet: Regular Addtl Attending Provider Instructions: Follow up with PMD 2 weeks Pending Studies at Discharge: No Stand-Alone Forms: My [facility], Smoking Cessation Medications and DC Order Prescriptions: New doxycycline hyclate 100 mg capsule 100 mg PO BID 7 Days Qty: 14 0RF amoxicillin-pot clavulanate 875-125 mg tablet 1 tab PO BID Qty: 14 0RF Continued gabapentin 600 mg tablet 600 mg PO TID hydrocodone-acetaminophen 10-325 mg tablet 1 tab PO 5XD PRN (Reason: Severe Pain (Scale Score 7-10)) Xarelto 10 mg Tablet 10 mg PO QPM Discharge Orders: Discharge Order (Routine); Ordered 04/17/25 Ordered By: Alonso Gomez Admission Data Admit Date/Time: 04/15/25 11:58 Attending Provider: Alonso Gomez Admit Provider: Alonso Gomez Primary Care Provider: Zaki Faria Other Providers: Darling Rachel; Josephine David; Bettie Delgado; Emelia Harkins; Solange Pope; [facility] Stay Data Consultations 04/15/25 12:00 Consult Infectious Diseases Routine Pending Results Patient Have Any Pending Studies at Discharge: No Discharge Instructions Given to Patient (Per Discharging Provider) Follow up with PMD 2 weeks Total Time Total Time Spent Total Time Spent (In Minutes): 50 Coding Level of Care Code 56513 INP/OBS DISCH >30 MIN Diagnoses Erysipelas of left lower extremity A46 Lymphedema due to chronic inflammation I89.0 History of DVT of lower extremity Z86.718
[2025-04-17 09:26] LABS: Hematocrit (blood only) 29.9 % (42.0-52.0); Hemoglobin 9.4 g/dL (14.0-18.0); Mean Corpuscular Hemoglobin 24.6 pg (25.0-34.0); Mean Corpuscular Volume 78.3 fL (80.0-100.0); Platelet Count 142 K/uL (130-400); RDW Standard Deviation 49.0 fL (36.4-46.3); Red Blood Count 3.82 M/uL (4.70-6.10); White Blood Count 5.29 K/ul (4.8-10.8)
[2025-04-17 09:41] LABS: Anion Gap 5.0 (3-11); Blood Urea Nitrogen 10.0 mg/dl (6-23); Calcium 8.4 mg/dl (8.6-10.3); Carbon Dioxide 25.0 mmol/L (21-32); Chloride 109.0 mmol/L (98-107); Creatinine Clr Calc Pharmacy 174.9 ml/min; Glucose 137.0 mg/dl (70-99(Fasting)); Potassium 3.7 mmol/L (3.5-5.1); Sodium 139.0 mmol/L (136-145)
== END 2025-04-17 13:56 | disposition home or self-care (01) | DRG 603 ==
LOC: ED 09:07 → 3W 11:58